=== PATIENT | male | born 1965 | race Hispanic/Latino ===

== ENCOUNTER 2018-03-03 09:41 | Inpatient (IN) | payer BC, SELFPAY ==
[2018-03-03 10:25] LABS: #Basophils 0.1 thou/uL (0.0-0.2); #Eosinphils 0.1 thou/uL (0.0-0.7); #Lymphocytes 1.6 thou/uL (1.20-3.40); #Neutrophils 7.4 thou/uL (1.40-6.50); %Basophils 0.5 % (0.0-1.0); %Eosinophils 0.6 % (0.0-10.0); %Lymphocytes 15.8 % (21.0-51.0); %Monocytes 9.9 % (0.0-10.0); %Neutrophils 73.1 % (42.0-75.0); Hemoglobin 14.9 g/dL (14.0-18.0); Mean Corpuscular HGB CONC 34.8 g/dL (32.0-36.0); Mean Corpuscular Hemoglobin 34.2 pg (27.0-31.0); Mean Corpuscular Volume 98.2 fl (80.0-94.0); Mean Platelet Volume 8.6 fL (7.4-10.4); Platelet Count 200 thou/uL (130-400); RBC Distribution Width 11.2 % (11.5-14.5); Red Blood Cell (RBC) Count 4.35 mill/uL (4.70-6.10); White Blood Cell (WBC) Count 10.2 thou/uL (4.8-10.8)
[2018-03-03 10:42] LABS: ALT (SGPT) 16 U/L (8-55); AST (SGOT) 16 U/L (5-34); Alkaline Phosphatase 71 U/L (40-150); Anion Gap 12 mmol/L (10-20); BUN (Urea Nitrogen) 10 mg/dL (8.4-25.7); Bilirubin, Total 0.4 mg/dL (0.2-1.2); Calc. Creatinine Clearance 0 mL/min (70-130); Calcium 10.8 mg/dL (7.8-10.44); Carbon Dioxide 26 mmol/L (22-29); Chloride 101 mmol/L (98-107); Estimated GFR-MDRD 59; Globulin 2.6 g/dL (2.4-3.5); Glucose 306 mg/dL (70-105); Potassium 4.1 mmol/L (3.5-5.1); Protein, Total 6.6 g/dL (6.0-8.3); Sodium 135 mmol/L (136-145)
[2018-03-03 10:44] LABS: CKMB 2.2 ng/mL (0-6.6)
[2018-03-03 10:54] LABS: Troponin I 0.879 ng/mL (< 0.028)
[2018-03-03] MEDS ORDERED: Nitroglycerin 2% Ointment 1 INCH/1 GM Packet ONE (11:17)
[2018-03-03] MEDS ORDERED: Enoxaparin Sodium 60 MG/0.6 ML SYRINGE ONE (11:17)
[2018-03-03 11:31] LABS: Prothrombin Time 13.2 SEC (12.0-14.7)
--- NOTE | 2018-03-03 12:02 | RAD ---
FRONTAL VIEW CHEST: Date: 03/03/18 INDICATION: Chest pain. Reference made to 03/06/12. FINDINGS: Mild elevation right hemidiaphragm persists. There is no lobar consolidation, effusion, or pneumothor ax. Cardiac silhouette is accentuated by portable technique. IMPRESSION: No focal consolidation. POS: [facility]
[2018-03-03] MEDS ORDERED: Insulin Regular 300 UNITS/3 ML VIAL ONE (12:38)
[2018-03-03] MEDS ORDERED: Ondansetron ODT 4 MG TAB SL PRN (14:54)
[2018-03-03] MEDS ORDERED: Ondansetron HCl/PF 4 MG/2 ML Vial IVP PRN (14:54)
[2018-03-03] MEDS ORDERED: Dextrose 5% in Water 1,000 ML IV PRN (14:59)
[2018-03-03] MEDS ORDERED: Guaifenesin DM 100-10/5 ML UDCUP PO PRN (14:59)
[2018-03-03] MEDS ORDERED: Dextrose 50% Abboject 50 ML SYRINGE SLOW IVP PRN (14:59)
[2018-03-03] MEDS ORDERED: HumaLOG 300 UNITS/3 ML VIAL SC PRN (14:59)
[2018-03-03] MEDS ORDERED: Acetaminophen 325 MG TAB PO PRN (14:59)
[2018-03-03 15:26] VITALS: BMI 24.0
[2018-03-03] MEDS ORDERED: Clopidogrel Bisulfate 300 MG TAB PO SCH (15:45)
[2018-03-03] MEDS ORDERED: Communication Order-Pharmacy FS SCH ×2 (15:45)
--- NOTE | 2018-03-03 16:12 | CON ---
DATE OF CONSULTATION: 03/03/2018 REASON FOR CONSULTATION: Non-ST elevation myocardial infarction. HISTORY OF PRESENT ILLNESS: Mr. José Manuel Jordan is a 53-year-old gentleman. He has been having chest p ain and pressure for about a week, thought it was indigestion. It got worse when he ate. This morni ng he had severe pain, it is about 4 in the morning and pain in the left arm went all the way across his chest. He wanted to go to work, but his insisted he finally came to the hospital. Then kaya t to doctor's office, but he was directed to the emergency room. The patient's said in the wait ing room, he started complaining of chest pain and he "lost all of his color." He was brought back t o the emergency room area. He received one dose of Lovenox. The patient says "I feel okay" now, but he has had increasing levels and troponin levels. PAST MEDICAL HISTORY: Diabetes, but he was not taking the diabetes medicines, but did resume some of them recently. ALLERGIES: None known. MEDICATIONS: Metformin, amlodipine. REVIEW OF SYSTEMS: Constitutional: No significant weight gain or loss. Vision: No changes. Heari ng: No changes. Pulmonary: No cough or wheezing. Gastrointestinal: No nausea, vomiting, diarrhea . Skin: No rashes. Neurologic: No unilateral weakness or numbness. Psychiatric: No unusual depr ession or anxiety. Hematologic: No unusual bruising. Genitourinary: No burning with urination. M usculoskeletal: No unusual joint pains. PHYSICAL EXAMINATION: GENERAL: A pleasant 53-year-old gentleman, wants to eat. VITAL SIGNS: His blood pressure 126/80, pulse 74 regular. HEENT: Sclerae nonicteric. Mouth, mucous membranes moist. NECK: Supple, no lymphadenopathy. LUNGS: Clear, no wheezing, rales or rhonchi. CARDIAC: Normal S1, normal S2. There is no murmur, rub or gallop. ABDOMEN: Soft, nontender, no hepatosplenomegaly. EXTREMITIES: Warm, dry, no clubbing or cyanosis. There is no edema. He has good femoral pulses and dorsalis pedis pulses. SKIN: Warm and dry. PERTINENT LABORATORY AND X-RAY FINDINGS: The first troponin was 0.879, follow up was 1.14. BNP 353. Potassium was 4.1, glucose 306. EKG normal sinus rhythm, T-wave inversions in the inferior leads, biphasic T waves in V5 and V6. ASSESSMENT: 1. Non-ST elevation myocardial infarction. 2. Diabetes. 3. Smoking. 4. Very significant alcohol intake. PLAN: We will proceed to cardiac catheterization. Discussed risks of stroke, heart attack, iodine a llergy, loss of blood supply to leg or kidney, stent thrombosis, stent restenosis. The patient and f keyona understand and wish to proceed. ADDENDUM: Mr. Jordan just received Lovenox less than 4 hours ago. He is currently pain free. As the patient is currently anticoagulated and asymptomatic, it will be safer to give the patient another d ose of Lovenox tonight and Proceed to cardiac catheterization tomorrow morning. Also, give a single loading dose of Plavix, but will not use maintenance dose in case the patient needs bypass surgery ne xt week.
[2018-03-03 16:45] LABS: Troponin I 1.528 ng/mL (< 0.028)
--- NOTE | 2018-03-03 18:06 | HP ---
REASON FOR ADMISSION: NSTEMI. HISTORY OF PRESENT ILLNESS: The patient gives history of having chest pain all across his chest radiating to both shoulders. This initially started on Tuesday. He tried taking Tums, thinking it was indigestion. He describes it as crushing pain, 10/10 in intensity, it lasted for nearly 40 minutes or so. He woke up this morning around 3:00 a.m. with the same pain. He thought it was indigestion again as he got relieved with Tums on Tuesday. He tried taking Rolaid. After this, he slept off around 3:45 a.m. He went to work and developed the pain again at work and was sent home. His took him to the [facility] where there was no doctors and was advised to go to the emergency room. The last episode of chest pain happened while his vital signs were taken in the ER and the patient was sitting. This episode of chest pain was associated with severe diaphoresis and patient became ashen. PAST MEDICAL/SURGICAL HISTORY: Diabetes mellitus type 2, hypertension, dyslipidemia, not on any medication, appendectomy, nose surgery. CURRENT MEDICATIONS: The patient takes metformin 1 gram daily, unknown hypertensive medication from last 3 weeks. Does not take any pills for dyslipidemia. ALLERGIES: No known drug allergies. PERSONAL HISTORY: Smokes one pack a day, drinks 24 ounces of beer, 3-4 on an average at least every day. Does not abuse drugs. FAMILY HISTORY: Mother lived up to 93 years, of old age. Father lived up to 79 years and as far as he knows he of natural causes. REVIEW OF SYSTEMS: The following complete review of systems was negative, unless otherwise mentioned in the HPI or below: Constitutional: Weight loss or gain, ability to conduct usual activities. Skin: Rash, itching. Eyes: Double vision, pain. ENT/Mouth: Nose bleeding, neck stiffness, pain, tenderness. Cardiovascular: Palpitations, dyspnea on exertion, orthopnea. Respiratory: Shortness of breath, wheezing, cough, hemoptysis, fever or night sweats. Gastrointestinal: Poor appetite, abdominal pain, heartburn, nausea, vomiting, constipation, or diarrhea. Genitourinary: Urgency, frequency, dysuria, nocturia. Musculoskeletal: Pain, swelling. Neurologic/Psychiatric: Anxiety, depression. Allergy/Immunologic: Skin rash, bleeding tendency. PHYSICAL EXAMINATION: GENERAL: The patient is a 53-year-old male who is currently not in any acute distress. VITAL SIGNS: Blood pressure 148/86, pulse 74 per minute, respiratory rate 16 per minute, temperature 97.8 degrees Fahrenheit, saturating 99% on room air. NECK: Supple, no elevated JVD. HEENT: Extraocular muscles intact. Pupils reacting to light. Oral cavity, mucous membranes are moist. No exudates or congestion. CARDIOVASCULAR: S1, S2 heard. Regular rhythm. RESPIRATORY: Air entry 1+ bilateral. Scattered rhonchi plus. No rales or wheezes. ABDOMEN: Soft, bowel sounds heard. No tenderness, rigidity or guarding. EXTREMITIES: No peripheral edema or calf tenderness. VASCULAR SYSTEM: Peripheral pulses 2+ bilateral. No ischemic ulcerations or gangrene. CENTRAL NERVOUS SYSTEM: No gross focal deficits seen. The patient is alert, awake, oriented well. PSYCHIATRIC: The patient's mood is euthymic. No hallucinations or delusions. LABORATORY AND X-RAY FINDINGS: EKG done shows normal sinus rhythm at 72 beats per minute. There are T inversions seen in lead II, III, AVF and V4, V5, V6. There is poor R-wave progression. White count of 10, H&H 14 and 42, MCV is 98, platelet count 200 with 73% neutrophils. PT, INR, PTT within normal limits. Electrolytes are stable. BUN 10, creatinine 1.26, serum glucose is 306. Albumin is 4. Troponin I 0.87, CK-MB 2.2, second set is 1.14. BNP is 353. Chest x-ray done shows no focal consolidation. CLINICAL IMPRESSION AND PLAN: The patient will be admitted to telemetry for non -ST elevation IA. He has had indeterminate troponins. He has received a full dose of Lovenox and aspirin in the ER. We will place him on nitro paste half- inch q.8 hourly, Lopressor 12.5 mg twice daily and Pepcid 20 mg twice daily. I have consulted Dr. Traore for Cardiology. He will be kept n.p.o. after midnight for possible catheterization in the morning. Echo with 2D Doppler for LV function and wall motion will be obtained as well. He will also be on ASE protocol in view of his heavy drinking habit. CODE STATUS: FULL. This was discussed with his of one year and patient. We will continue to closely monitor him on telemetry. YAKELIN
[2018-03-03] MEDS: Metoprolol Tartrate 25 MG TAB PO SCH (20:38)
[2018-03-03] MEDS: Famotidine 20 MG TAB PO SCH (20:38)
[2018-03-03] MEDS ORDERED: Famotidine 20 MG TAB PO SCH (21:00)
[2018-03-03] MEDS ORDERED: Metoprolol Tartrate 25 MG TAB PO SCH (21:00)
[2018-03-03] MEDS ORDERED: Enoxaparin Sodium 60 MG/0.6 ML SYRINGE SC SCH (21:00)
[2018-03-03] MEDS: Nitroglycerin 2% Ointment 1 INCH/1 GM Packet TOP SCH (22:38)
[2018-03-04 05:04] LABS: #Eosinphils 0.1 thou/uL (0.0-0.7); #Lymphocytes 2.8 thou/uL (1.20-3.40); #Neutrophils 5.3 thou/uL (1.40-6.50); %Basophils 0.3 % (0.0-1.0); %Eosinophils 1.6 % (0.0-10.0); %Lymphocytes 30.4 % (21.0-51.0); %Monocytes 10.8 % (0.0-10.0); %Neutrophils 56.8 % (42.0-75.0); Hemoglobin 14.7 g/dL (14.0-18.0); Mean Corpuscular HGB CONC 35.4 g/dL (32.0-36.0); Mean Corpuscular Hemoglobin 34.6 pg (27.0-31.0); Mean Corpuscular Volume 97.8 fl (80.0-94.0); Mean Platelet Volume 8.6 fL (7.4-10.4); Platelet Count 191 thou/uL (130-400); RBC Distribution Width 11.4 % (11.5-14.5); Red Blood Cell (RBC) Count 4.23 mill/uL (4.70-6.10); White Blood Cell (WBC) Count 9.3 thou/uL (4.8-10.8)
[2018-03-04 05:21] LABS: Anion Gap 12 mmol/L (10-20); BUN (Urea Nitrogen) 12 mg/dL (8.4-25.7); Calc. Creatinine Clearance 67 mL/min (70-130); Calcium 9.6 mg/dL (7.8-10.44); Carbon Dioxide 26 mmol/L (22-29); Cardiac Risk 4.1 (Less than 4.5); Chloride 106 mmol/L (98-107); Cholesterol 146 mg/dl (< 200 Desired); Estimated GFR-MDRD 68; Glucose 177 mg/dL (70-105); HDL Cholesterol 36 mg/dL (>60 Neg Risk); LDL Cholesterol, Calculated 78 mg/dL; Potassium 3.9 mmol/L (3.5-5.1); Sodium 140 mmol/L (136-145); Triglycerides 160 mg/dL (Less than 150)
[2018-03-04] MEDS: Sodium Chloride 0.9% 1,000 ML IV SCH ×4 (05:41→16:49)
[2018-03-04] MEDS: Metoprolol Tartrate 25 MG TAB PO SCH ×2 (05:42→20:25)
[2018-03-04] MEDS: Famotidine 20 MG TAB PO SCH ×2 (05:42→20:25)
[2018-03-04] MEDS: Lisinopril 10 MG TAB PO SCH (05:42)
[2018-03-04] MEDS: Aspirin 325 MG TAB PO SCH (05:42)
[2018-03-04] MEDS: Nitroglycerin 2% Ointment 1 INCH/1 GM Packet TOP SCH ×3 (05:48→22:16)
[2018-03-04] MEDS ORDERED: Iopamidol 370 76% 100 ML VIAL ONE (06:50)
[2018-03-04] MEDS ORDERED: Lidocaine 1% (PF) 30 ML VIAL ONE (07:02)
[2018-03-04] MEDS ORDERED: Diazepam 5 MG TAB PO SCH (08:00)
[2018-03-04] MEDS ORDERED: Midazolam HCl 2 mg/2 ml Vial ONE (08:08)
[2018-03-04] MEDS ORDERED: Fentanyl 100 MCG/2 ML VIAL ONE (08:08)
[2018-03-04] MEDS ORDERED: Enoxaparin Sodium 40 MG/0.4 ML SYRINGE SC SCH (09:00)
[2018-03-04] MEDS ORDERED: Acetaminophen/Codeine 30-300mg Tablet PO PRN ×2 (09:01)
[2018-03-04] MEDS ORDERED: traMADol HCl 50 MG TAB PO PRN (09:01)
[2018-03-04] MEDS ORDERED: Nitroglycerin 0.4 MG TAB (25 Tab Bottle) SL PRN (09:01)
[2018-03-04] MEDS ORDERED: Sodium Chloride 0.9% 200 ML IV PRN (09:15)
--- NOTE | 2018-03-04 13:39 | PDOC.PN ---
- Subjective Encounter Start Date: 03/04/18 Encounter Start Time: 12:00 Subjective: no chest pain or palp now -: had cath this am - Objective Resuscitation Status: Resuscitation Status FULL:Full Resuscitation MAR Reviewed: Yes Vital Signs & Weight: Vital Signs (12 hours) Temp Pulse Resp BP BP BP Pulse Ox 03/04/18 11:59 97.6 F 03/04/18 10:25 98 F 63 16 100 03/04/18 07:37 98 F 63 16 123/86 123/86 98 03/04/18 05:42 132/91 H 03/04/18 04:57 98.6 F 62 18 132/91 H 18 L 03/04/18 04:00 132/91 H Weight Weight 141 lb Most Recent Monitor Data Heart Rate from ECG 59 NIBP 131/78 NIBP BP-Mean 95 Respiration from ECG 15 SpO2 100 I&O: 03/03/18 03/04/18 03/05/18 06:59 06:59 06:59 Intake Total 1540 Output Total 675 325 Balance 865 -325 Result Diagrams: 03/04/18 04:15 03/04/18 04:15 Additional Labs: Accuchecks 03/04/18 03/04/18 03/03/18 12:19 05:52 20:47 POC Glucose 148 H 190 H 149 H 03/03/18 15:59 POC Glucose 197 H Phys Exam - Physical Examination HEENT: PERRLA, moist MMs Neck: no JVD, supple Respiratory: no wheezing, no rales Cardiovascular: RRR, no significant murmur Gastrointestinal: soft, non-tender, positive bowel sounds Musculoskeletal: no edema, pulses present Neurological: non-focal, moves all 4 limbs Psychiatric: normal affect, A&O x 3 Dx/Plan (1) NSTEMI (non-ST elevated myocardial infarction) Code(s): I21.4 - NON-ST ELEVATION (NSTEMI) MYOCARDIAL INFARCTION Status: Acute (2) CAD (coronary artery disease) Code(s): I25.10 - ATHSCL HEART DISEASE OF [place] CORONARY ARTERY W/O ANG PCTRS Status: Acute Qualifiers: Coronary Disease-Associated Artery/Lesion type: [place] artery [place] vs. transplanted heart: [place] heart (3) Dyslipidemia Code(s): E78.5 - HYPERLIPIDEMIA, UNSPECIFIED Status: Chronic (4) DM type 2 (diabetes mellitus, type 2) Status: Chronic Qualifiers: Diabetes mellitus care home insulin use: without care home use Diabetes mellitus complication status: with unspecified complications Qualified Code(s) : E11.8 - Type 2 diabetes mellitus with unspecified complications (5) Alcohol abuse Code(s): F10.10 - ALCOHOL ABUSE, UNCOMPLICATED Status: Chronic (6) Tobacco abuse Code(s): Z72.0 - TOBACCO USE Status: Chronic (7) Hypertension Code(s): I10 - ESSENTIAL (PRIMARY) HYPERTENSION Status: Chronic Qualifiers: Hypertension type: essential hypertension Qualified Code(s): I10 - Essential (primary) hypertension - Plan has multiple vessel cad for cabg -: is on asp, lipitor, lopressor, lisinopril -: full dose lovenox -: ef was around 30% with inf wall akinesis -: plavix held for now, humalog coverage ac&hs * . Review of Systems - Medications/Allergies Allergies/Adverse Reactions: Allergies Allergy/AdvReac Type Severity Reaction Status Date / Time No Known Drug Allergies Allergy Verified 03/03/18 15:22 Medications: Current Medications Acetaminophen (Tylenol) 650 mg PO Q4H PRN PRN Reason: Headache/Fever or Pain Last Admin: 03/03/18 18:24 Dose: 650 mg Acetaminophen/Codeine Phosphate (Tylenol #3) 1 tab PO Q4H PRN PRN Reason: Mild Pain (1-3) Acetaminophen/Codeine Phosphate (Tylenol #3) 2 tab PO Q4H PRN PRN Reason: Moderate Pain (4-6) Aspirin (Aspirin) 325 mg PO DAILY [facility] Last Admin: 03/04/18 05:42 Dose: 325 mg Atorvastatin Calcium (Lipitor) 10 mg PO [facility] Dextrose/Water (Dextrose 50%) 25 gm SLOW IVP PRN PRN PRN Reason: Hypoglycemia Diazepam (Valium) 5 mg PO WILLCALL [facility] Stop: 03/04/18 20:00 Last Admin: 03/04/18 07:47 Dose: 5 mg Enoxaparin Sodium (Lovenox) 60 mg SC 0900,2100 [facility] Famotidine (Pepcid) 20 mg PO BID [facility] Last Admin: 03/04/18 05:42 Dose: 20 mg Glucagon (Glucagon) 1 mg IM PRN PRN PRN Reason: Hypoglycemia Guaifenesin/Dextromethorphan (Robitussin Dm) 15 ml PO Q4H PRN PRN Reason: Cough Dextrose/Water (D5w) 1,000 mls @ 0 mls/hr IV .Q0M PRN; As Directed PRN Reason: Hypoglycemia Sodium Chloride (Normal Saline 0.9%) 1,000 mls @ 100 mls/hr IV .Q10H [facility] Last Admin: 03/04/18 05:41 Dose: 1,000 mls Sodium Chloride (Normal Saline 0.9%) 1,000 mls @ 80 mls/hr IV .[id number] [facility] Last Admin: 03/04/18 11:05 Dose: 1,000 mls Sodium Chloride (Normal Saline 0.9%) 200 mls @ 0 mls/hr IV ONE PRN; As Directed PRN Reason: Bolus PRN SBP < 90 mm Hg Stop: 03/07/18 09:16 Insulin Human Lispro (Humalog) 0 units SC .MODERATE SLIDING SC PRN PRN Reason: Moderate Correction[place] Scale Insulin Human Lispro (Humalog) 0 units SC .BEDTIME SLIDING SC PRN PRN Reason: Bedtime Correction[place] Scale Lisinopril (Zestril) 10 mg PO DAILY [facility] Last Admin: 03/04/18 05:42 Dose: 10 mg Metoprolol Tartrate (Lopressor) 12.5 mg PO BID [facility] Last Admin: 03/04/18 05:42 Dose: 12.5 mg Miscellaneous Information (Communication Order-Pharmacy) 0 each FS ONE [facility] Stop: 03/04/18 15:46 Miscellaneous Information (Communication Order-Pharmacy) 0 each FS ONE [facility] Stop: 03/04/18 15:46 Nitroglycerin (Nitro-Bid 2% Ointment) 0.5 inch TOP Q8HR [facility] Last Admin: 03/04/18 05:48 Dose: Not Given Nitroglycerin (Nitrostat) 0.4 mg SL Q5MIN PRN PRN Reason: Chest Pain Tramadol HCl (Ultram) 50 mg PO Q6H PRN PRN Reason: Moderate Pain (4-6)
[2018-03-04] MEDS ORDERED: Communication Order-Pharmacy FS SCH (15:49)
[2018-03-04 16:44] LABS: #Basophils 0.1 thou/uL (0.0-0.2); #Eosinphils 0.2 thou/uL (0.0-0.7); #Lymphocytes 2.4 thou/uL (1.20-3.40); #Monocytes 0.9 thou/uL (0.11-0.59); #Neutrophils 5.4 thou/uL (1.40-6.50); %Basophils 0.8 % (0.0-1.0); %Eosinophils 1.7 % (0.0-10.0); %Lymphocytes 26.6 % (21.0-51.0); %Monocytes 10.1 % (0.0-10.0); %Neutrophils 60.8 % (42.0-75.0); Hemoglobin 14.4 g/dL (14.0-18.0); Mean Corpuscular HGB CONC 35.6 g/dL (32.0-36.0); Mean Corpuscular Hemoglobin 35.2 pg (27.0-31.0); Mean Corpuscular Volume 98.7 fl (80.0-94.0); Mean Platelet Volume 8.4 fL (7.4-10.4); Platelet Count 182 thou/uL (130-400); RBC Distribution Width 11.3 % (11.5-14.5)
[2018-03-04 16:50] LABS: Hemoglobin A1c 8.9 % (4.0-6.0)
[2018-03-04 17:03] LABS: Anion Gap 8 mmol/L (10-20); BUN (Urea Nitrogen) 13 mg/dL (8.4-25.7); Calc. Creatinine Clearance 65 mL/min (70-130); Calcium 9.4 mg/dL (7.8-10.44); Carbon Dioxide 27 mmol/L (22-29); Chloride 106 mmol/L (98-107); Estimated GFR-MDRD 65; Glucose 158 mg/dL (70-105); Potassium 3.8 mmol/L (3.5-5.1); Sodium 137 mmol/L (136-145)
[2018-03-04] MEDS ORDERED: Enoxaparin Sodium 60 MG/0.6 ML SYRINGE SC SCH ×2 (18:00→21:00)
[2018-03-04] MEDS: HumaLOG 300 UNITS/3 ML VIAL SC PRN (18:36)
--- NOTE | 2018-03-04 20:52 | CON ---
DATE OF CONSULTATION: 03/04/2018 REQUESTING PHYSICIAN: Dr. Traore. CHIEF COMPLAINT: Burning epigastric chest pain progressing to crushing chest pain. HISTORY OF PRESENT ILLNESS: The patient is a 53-year-old diabetic man followed at [facility] who sounds like he is not particularly compliant with medical management. Over the last week or so , the patient has been having frequent episodes of indigestion. He says that in the past, he has got ten relief of his indigestions by taking antacid, but over the last week or two, it really has not he lped much and he has been waking up in the middle of the night with indigestion. This so-called chang gestion has been associated with discomfort in his shoulders and arms and occasionally in his neck. When he finally it is significant other's insistence presented to the emergency room, he apparently h ad another episode in the emergency room that was associated with diaphoresis and he developed an suly in color. The patient denies any antecedent shortness of breath, edema, orthopnea or PND. PAST MEDICAL HISTORY: Significant for diabetes. MEDICATIONS: He is supposed to be on Norvasc 5 mg a day and metformin 1000 mg q.a.m., although it is not clear that he actually takes this. He was given a loading dose of Plavix 300 mg yesterday after noon and he is currently on an adult aspirin a day, Lipitor 10 mg at bedtime, Lovenox 60 mg subQ q.12 hours, sliding scale insulin, Pepcid 20 mg b.i.d., Lopressor 12.5 mg b.i.d., lisinopril 10 mg a day and nitro paste 1/2 inch q.8 hours. ALLERGIES: Patient denies any medical history. SOCIAL HISTORY: He smokes and is a daily drinker. FAMILY HISTORY: Negative for any known premature heart disease or other vascular disease, but multip le family members have diabetes and hypertension. REVIEW OF SYSTEMS: Patient denies any eye, speech, facial or extremity symptoms suggestive of TIAs. He does say that he has frequent leg cramps when he walks. Otherwise, review of systems is as per H PI. PHYSICAL EXAMINATION: GENERAL: He is in no distress. He is 5 feet 4 inches, weight 141 pounds. Heart rate has been in si nus rhythm in the mid 20s to low 70s. Blood pressure has been roughly 120-140/70-85. NECK: He has obvious xanthelasma. LUNGS: His chest is clear to auscultation. He has no carotid bruits. CARDIOVASCULAR: He has a regular rate and rhythm without obvious murmur or gallop. ABDOMEN: Soft and nontender. EXTREMITIES: He has easily palpable radial, femoral, popliteal, and dorsalis pedis pulses. I was no t able to readily appreciate posterior tibials. He has no clubbing, cyanosis or edema. No atrophic skin changes. He has no obvious varicosities. LABORATORY AND IMAGING DATA: His chest x-ray shows perhaps some mild to moderate edema with a reason ably normal cardiac silhouette and aortic knob. Hemoglobin is 14.7, hematocrit 41.4, white count 9.3 , platelets 191,000. PT was 13.2, INR 1.0, PTT 28.0. Normal electrolytes. Glucose was 306, BUN 10, creatinine 1.26. Normal LFTs. Protein 6.6, albumin 4.0. His initial troponin was 0.879 with a fol lowup troponin of 1.140. His BNP was 353.8. Fasting lipids were triglyceride of 160, total choleste rol 146, LDL 78, HDL 36. His EKG shows an R-wave in 2, but none in 3 or AVF with inverted T waves in leads II, III, aVF, V5 and V6. He has an upright T-wave in V1 and biphasic T-wave in V4. Cardiac c atheterization shows a right dominant system with a very large posterolateral and posterior descendin g systems. He has mild mid right coronary lesion, but a subtotal lesion in the distal right coronary just proximal to the crux. The posterior descending and posterolateral branches appear to communica te with each other freely. His left main is normal. He has a reasonably normal sized obtuse margina l was a modest lesion in it. He has about a 70-80% lesion in a small diagonal. His LAD is a diminut edgard vessel that does not seem to even go out to the apex, but has no obvious significant disease in i t. LV pressure was 105/6 with an EDP of 10. Aortic pressure was 108/65 with a mean of 83. LVEF was 30% by Dr. Traore's estimation, I thought it was about 20%. He has a large area of inferoapical sanket nesis. IMPRESSION AND RECOMMENDATIONS: Based on his EKG and ventriculogram, I would not be surprised if muc h of his inferior wall and perhaps posterolateral wall or scar and that his symptoms are coming more from his septum, viable portions of his posterolateral system. His LAD is rather diminutive and may not provide much blood flow to the septum. His EDP would suggest that this is relatively chronic iss ue and he is reasonably well compensated in spite of the low ejection fraction and will plan on revas cularization to the right obtuse marginal and if bypassable to the diagonal.
[2018-03-04] MEDS ORDERED: Atorvastatin Calcium 10 MG TAB PO SCH (21:00)
--- NOTE | 2018-03-05 01:15 | CON ---
DATE OF CONSULTATION: 03/04/2018 HISTORY OF PRESENT ILLNESS: Mr. Jordan is a gentleman who presented with chest discomfort. He has had chest discomfort prior to this admission and pushed it off the indigestion. He has undergone cardiac catheterization and found to have significant coronary artery disease. He has been admitted to the ICU. PAST MEDICAL HISTORY: Remarkable for diabetes. ALLERGIES: None. MEDICATIONS: None. According to records, he has been on metformin and amlodipine, but did run out and not refill the prescriptions. REVIEW OF SYSTEMS: Ten points otherwise negative. He denies having any pain now. He wants to know if he can go home with medicine. PHYSICAL EXAMINATION. GENERAL: Patient has chest pain VITAL SIGNS: Afebrile. Blood pressure 127/92, heart rate 66, respiratory rate is 15. HEAD AND NECK: Unremarkable. LUNGS: Clear. HEART: Regular rhythm. S1 and S2 are normal. ABDOMEN: Soft and nontender. EXTREMITIES: No clubbing, cyanosis, or edema. NEUROLOGIC: Grossly nonfocal. LABORATORY DATA: White count 9.0, hemoglobin 14.4, platelets 182,000. Sodium 137, potassium 3.8, chloride 106, bicarb 27, BUN 13, creatinine 1.1. IMPRESSION: Coronary artery disease. I have asked him to defer all of his questions to the behavior interventionist and cardiothoracic surgeon. His ejection fraction by echo was down at 35-40%. He has inferior hypokinesis. He has mild- to-moderate mitral regurgitation. From a pulmonary standpoint and ICU standpoint, he is stable at this time. He is resistant to idea of surgery, but says he will do what he has to do. This is a 70-minute consult, greater than 50% of the time was spent coordinating care on the unit. YAKELIN
[2018-03-05] MEDS: Sodium Chloride 0.9% 1,000 ML IV SCH (03:41)
[2018-03-05] MEDS: Nitroglycerin 2% Ointment 1 INCH/1 GM Packet TOP SCH ×3 (05:19→20:48)
[2018-03-05] MEDS: HumaLOG 300 UNITS/3 ML VIAL SC PRN ×3 (05:57→17:18)
[2018-03-05] MEDS: Famotidine 20 MG TAB PO SCH ×2 (08:55→20:47)
[2018-03-05] MEDS: Metoprolol Tartrate 25 MG TAB PO SCH ×2 (08:55→20:47)
[2018-03-05] MEDS: Aspirin 325 MG TAB PO SCH (08:55)
[2018-03-05] MEDS: Enoxaparin Sodium 60 MG/0.6 ML SYRINGE SC SCH ×2 (08:56→20:48)
[2018-03-05] MEDS: Lisinopril 10 MG TAB PO SCH (08:56)
--- NOTE | 2018-03-05 10:12 | PRG ---
DATE OF SERVICE: 03/05/2018. SUBJECTIVE: Mr. Jordan is doing fine. He is not having any chest pain or pressure. PHYSICAL EXAMINATION: VITAL SIGNS: His blood pressure is 145/87, pulse is 68, regular. LUNGS: Clear. CARDIAC: Normal S1, S2. ABDOMEN: Soft, nontender. The right groin is fine. ASSESSMENT: 1. Status post non-ST elevation myocardial infarction with severe 3-vessel disease. 2. Diabetes. 3. History of smoking. PLAN: Coronary artery bypass grafting tomorrow. We will give him one more dose of Lovenox and then stop.
--- NOTE | 2018-03-05 13:55 | PRG ---
DATE OF SERVICE: 03/05/2018 SUBJECTIVE: José Manuel Jordan denies having chest pain, says he is willing to undergo surgery. He wants to eat a cheeseburger before he has surgery because he says he changes diet after surgery. I have explained to him that he is uncontrolled diabetes and he is failure to take medications on a r egular basis, this what strongly contributed to this situation. OBJECTIVE: VITAL SIGNS: He is afebrile, heart rate 74, blood pressure 147/90, respiratory rate is 19. LUNGS: Clear. HEART: Regular rhythm. S1 and S2 are normal. ABDOMEN: Soft and nontender. EXTREMITIES: Without edema. NEUROLOGIC: Nonfocal. LABORATORY DATA: There is no new lab today except blood sugars, which were all less than 195 for the most part in the 170 range. IMPRESSION: 1. Coronary artery disease, tentatively for coronary bypass grafting. 2. History of medical noncompliance. PLAN: Continue current care. Awaiting surgery. He is stable to move out of the Critical Care Unit. He has had no chest pain.
--- NOTE | 2018-03-05 15:46 | PDOC.PN ---
- Subjective Encounter Start Date: 03/05/18 Encounter Start Time: 07:20 Subjective: no chest pain or sob or palp -: and brother at bedside - Objective Resuscitation Status: Resuscitation Status FULL:Full Resuscitation MAR Reviewed: Yes Vital Signs & Weight: Vital Signs (12 hours) Temp Pulse Resp BP Pulse Ox 03/05/18 11:59 97.6 F 03/05/18 08:56 145/84 H 03/05/18 07:39 97.6 F 75 14 99 03/05/18 07:00 97.6 F Weight Weight 136 lb 0.403 oz Most Recent Monitor Data Heart Rate from ECG 67 NIBP 142/94 NIBP BP-Mean 102 Respiration from ECG 18 SpO2 98 I&O: 03/04/18 03/05/18 03/06/18 06:59 06:59 06:59 Intake Total 1540 2250 1886 Output Total 675 3065 851 Balance 865 -815 1035 Result Diagrams: 03/04/18 16:35 03/04/18 16:35 Additional Labs: Accuchecks 03/05/18 03/05/18 03/04/18 11:40 05:57 20:19 POC Glucose 195 H 179 H 172 H 03/04/18 17:55 POC Glucose 175 H Phys Exam - Physical Examination HEENT: PERRLA, moist MMs Neck: no JVD, supple Respiratory: no wheezing, no rales Cardiovascular: RRR, no significant murmur Gastrointestinal: soft, non-tender, positive bowel sounds Musculoskeletal: no edema, pulses present Neurological: non-focal, moves all 4 limbs Psychiatric: normal affect, A&O x 3 Dx/Plan (1) NSTEMI (non-ST elevated myocardial infarction) Code(s): I21.4 - NON-ST ELEVATION (NSTEMI) MYOCARDIAL INFARCTION Status: Acute (2) CAD (coronary artery disease) Code(s): I25.10 - ATHSCL HEART DISEASE OF [place] CORONARY ARTERY W/O ANG PCTRS Status: Acute Qualifiers: Coronary Disease-Associated Artery/Lesion type: [place] artery [place] vs. transplanted heart: [place] heart (3) Dyslipidemia Code(s): E78.5 - HYPERLIPIDEMIA, UNSPECIFIED Status: Chronic (4) DM type 2 (diabetes mellitus, type 2) Status: Chronic Qualifiers: Diabetes mellitus fci insulin use: without long wall shear operator use Diabetes mellitus complication status: with unspecified complications Qualified Code(s) : E11.8 - Type 2 diabetes mellitus with unspecified complications (5) Alcohol abuse Code(s): F10.10 - ALCOHOL ABUSE, UNCOMPLICATED Status: Chronic (6) Tobacco abuse Code(s): Z72.0 - TOBACCO USE Status: Chronic (7) Hypertension Code(s): I10 - ESSENTIAL (PRIMARY) HYPERTENSION Status: Chronic Qualifiers: Hypertension type: essential hypertension Qualified Code(s): I10 - Essential (primary) hypertension - Plan is on asp, lipitor, lovenox 60 mg q12h, lopressor 12.5 bid, lisinopril 10 -: echo confirmed ef of 35% with inf wall hypokinesis -: HbA1c of 8.9, is on coverage now, will optimize meds post cabg -: for cabg in am, i.spirometry qhrly, cabg video to be shown to pt -: hemostable, d/w pt, and brother at bedside * . Review of Systems - Medications/Allergies Allergies/Adverse Reactions: Allergies Allergy/AdvReac Type Severity Reaction Status Date / Time No Known Drug Allergies Allergy Verified 03/03/18 15:22 Medications: Current Medications Acetaminophen (Tylenol) 650 mg PO Q4H PRN PRN Reason: Headache/Fever or Pain Stop: 03/06/18 08:30 Last Admin: 03/03/18 18:24 Dose: 650 mg Acetaminophen/Codeine Phosphate (Tylenol #3) 1 tab PO Q4H PRN PRN Reason: Mild Pain (1-3) Stop: 03/06/18 08:30 Acetaminophen/Codeine Phosphate (Tylenol #3) 2 tab PO Q4H PRN PRN Reason: Moderate Pain (4-6) Stop: 03/06/18 08:30 Aspirin (Aspirin) 325 mg PO DAILY [facility] Stop: 03/06/18 08:30 Last Admin: 03/05/18 08:55 Dose: 325 mg Atorvastatin Calcium (Lipitor) 40 mg PO HS [facility] Stop: 03/06/18 08:30 Dextrose/Water (Dextrose 50%) 25 gm SLOW IVP PRN PRN PRN Reason: Hypoglycemia Stop: 03/06/18 08:30 Enoxaparin Sodium (Lovenox) 60 mg SC 0900,2100 [facility] Stop: 03/06/18 06:00 Last Admin: 03/05/18 08:56 Dose: 60 mg Famotidine (Pepcid) 20 mg PO BID [facility] Stop: 03/06/18 08:30 Last Admin: 03/05/18 08:55 Dose: 20 mg Glucagon (Glucagon) 1 mg IM PRN PRN PRN Reason: Hypoglycemia Stop: 03/06/18 08:30 Guaifenesin/Dextromethorphan (Robitussin Dm) 15 ml PO Q4H PRN PRN Reason: Cough Stop: 03/06/18 08:30 Dextrose/Water (D5w) 1,000 mls @ 0 mls/hr IV .Q0M PRN; As Directed PRN Reason: Hypoglycemia Stop: 03/06/18 08:30 Sodium Chloride (Normal Saline 0.9%) 200 mls @ 0 mls/hr IV ONE PRN; As Directed PRN Reason: Bolus PRN SBP < 90 mm Hg Stop: 03/06/18 08:30 Insulin Human Lispro (Humalog) 0 units SC .MODERATE SLIDING SC PRN PRN Reason: Moderate Correctional Scale Stop: 03/06/18 08:30 Last Admin: 03/05/18 11:53 Dose: 2 unit Insulin Human Lispro (Humalog) 0 units SC .BEDTIME SLIDING SC PRN PRN Reason: Bedtime Correctional Scale Stop: 03/06/18 08:30 Lisinopril (Zestril) 10 mg PO DAILY [facility] Stop: 03/06/18 11:00 Last Admin: 03/05/18 08:56 Dose: 10 mg Metoprolol Tartrate (Lopressor) 12.5 mg PO BID [facility] Stop: 03/06/18 11:00 Last Admin: 03/05/18 08:55 Dose: 12.5 mg Miscellaneous Information (Communication Order-Pharmacy) 1 each FS ONE [facility] Stop: 03/06/18 15:50 Nitroglycerin (Nitro-Bid 2% Ointment) 0.5 inch TOP Q8HR [facility] Stop: 03/06/18 08:30 Last Admin: 03/05/18 05:19 Dose: 0.5 inch Nitroglycerin (Nitrostat) 0.4 mg SL Q5MIN PRN PRN Reason: Chest Pain Stop: 03/06/18 08:30 Tramadol HCl (Ultram) 50 mg PO Q6H PRN PRN Reason: Moderate Pain (4-6) Stop: 03/06/18 08:30
[2018-03-05] MEDS ORDERED: Atorvastatin Calcium 40 MG TAB PO SCH (21:00)
[2018-03-06] MEDS: Nitroglycerin 2% Ointment 1 INCH/1 GM Packet TOP SCH (05:31)
[2018-03-06] MEDS: Lisinopril 10 MG TAB PO SCH (05:31)
[2018-03-06] MEDS: Metoprolol Tartrate 25 MG TAB PO SCH (07:43)
[2018-03-06] MEDS ORDERED: Mannitol 12.5 GM/50 ML ONE (11:51)
[2018-03-06] MEDS ORDERED: Papaverine 60 MG/2 ML VIAL ONE (11:51)
[2018-03-06] MEDS ORDERED: PHENYLEPHRINE-NS 100 MCG/ML 10 ML SYRINGE ONE (11:51)
[2018-03-06] MEDS ORDERED: Nitroglycerin 50 MG/250 ML BOT ONE (11:51)
[2018-03-06] MEDS ORDERED: Cardioplegic Soln 1,000 ML BAG ONE (11:51)
[2018-03-06] MEDS ORDERED: Protamine Sulfate 250 MG/25 ML VIAL ONE (11:51)
[2018-03-06] MEDS ORDERED: Aminocaproic Acid 5 GM/20 ML VIAL ONE (11:51)
[2018-03-06] MEDS ORDERED: Heparin 30,000 units/30 ml VIAL ONE (11:51)
[2018-03-06] MEDS ORDERED: Sodium Bicarb 50 MEQ/50 ML Abboject 8.4% SYRINGE ONE (11:51)
[2018-03-06] MEDS ORDERED: Heparin 5,000 UNITS/ML VIAL ONE (11:51)
[2018-03-06] MEDS ORDERED: Norepinephrine 4 MG/4 ML VIAL ONE (11:51)
[2018-03-06] MEDS ORDERED: Heparin 10,000 UNITS/1 ML VIAL 30,000 UNITS in Sodium Chloride 0.9% 1,000 ML FS SCH (12:15)
[2018-03-06] MEDS ORDERED: Albumin 5% 500 ML ONE ×2 (13:07→14:08)
[2018-03-06] MEDS ORDERED: Fentanyl 250 MCG/5 ML VIAL ONE (13:55)
[2018-03-06] MEDS ORDERED: Midazolam HCl 5 mg/5 ml Vial ONE (13:56)
[2018-03-06] MEDS ORDERED: Dexmedetomidine 200 MCG/2 ML VIAL ONE (13:57)
[2018-03-06] MEDS ORDERED: Rocuronium Bromide 50 MG/5 ML VIAL ONE (14:00)
[2018-03-06] MEDS ORDERED: Phenylephrine HCL 10 MG/ML VIAL ONE (14:00)
[2018-03-06] MEDS ORDERED: HYDROcodone/Acetaminophen 5/325 mg Tablet PO PRN (14:06)
[2018-03-06] MEDS ORDERED: Norepinephrine 8 MG/0.9% NS 250 ML IVPB PRN (14:06)
[2018-03-06] MEDS ORDERED: Hetastarch 6% 500 ML 500 ML IVPB PRN (14:06)
[2018-03-06] MEDS ORDERED: Nitroglycerin 50 MG/250 ML BOT 250 ML IVPB PRN (14:06)
[2018-03-06] MEDS ORDERED: Acetaminophen 325 MG TAB PO PRN (14:06)
[2018-03-06] MEDS ORDERED: Bisacodyl 5 MG TAB PO PRN (14:06)
[2018-03-06] MEDS ORDERED: Post-Op Insulin Drip Protocol IVPB ONE (14:06)
[2018-03-06] MEDS ORDERED: Mag-Al 1200 mg/1200 mg/30 ML UDCUP PO PRN (14:06)
[2018-03-06] MEDS ORDERED: Bisacodyl 10 MG SUPP PR PRN (14:06)
[2018-03-06] MEDS ORDERED: hydrALAZINE 20 MG/ML VIAL SLOW IVP PRN (14:06)
[2018-03-06] MEDS ORDERED: Fentanyl 100 MCG/2 ML VIAL SLOW IVP PRN (14:06)
[2018-03-06] MEDS ORDERED: Promethazine HCl 25 MG/ML VIAL IM PRN (14:06)
[2018-03-06] MEDS ORDERED: Guaifenesin DM 100-10/5 ML UDCUP PO PRN (14:06)
[2018-03-06] MEDS ORDERED: Dextrose 50% Abboject 50 ML SYRINGE SLOW IVP PRN (14:17)
[2018-03-06] MEDS ORDERED: Dextrose 5% in Water 1,000 ML IV PRN (14:17)
[2018-03-06] MEDS ORDERED: CEFAZOLIN/Water 2 GM/20 ML SYRINGE ONE (14:22)
--- NOTE | 2018-03-06 17:10 | PDOC.PN ---
- Subjective Encounter Start Date: 03/06/18 Encounter Start Time: 07:50 Subjective: no chest pain or sob -: is npo for cabg this afternoon -: at bedside - Objective Resuscitation Status: Resuscitation Status FULL:Full Resuscitation MAR Reviewed: Yes Vital Signs & Weight: Vital Signs (12 hours) Temp Pulse Resp BP BP Pulse Ox 03/06/18 12:19 98.6 F 64 17 151/89 H 96 03/06/18 08:00 121/80 03/06/18 07:36 98.4 F 56 L 16 121/80 97 Weight Weight 130 lb 3.2 oz Most Recent Monitor Data Heart Rate from ECG 75 NIBP 151/95 NIBP BP-Mean 111 Respiration from ECG 16 SpO2 100 I&O: 03/05/18 03/06/18 03/07/18 06:59 06:59 06:59 Intake Total 2250 2286 Output Total 3065 1576 Balance -815 710 Result Diagrams: 03/04/18 16:35 03/04/18 16:35 Additional Labs: Accuchecks 03/06/18 03/06/18 03/06/18 17:03 16:16 15:03 POC Glucose 132 H 124 H 123 H 03/06/18 03/06/18 03/05/18 11:16 05:44 22:25 POC Glucose 168 H 188 H 225 H Phys Exam - Physical Examination HEENT: PERRLA, moist MMs Neck: no JVD, supple Respiratory: no wheezing, no rales Cardiovascular: RRR, no significant murmur Gastrointestinal: soft, non-tender, positive bowel sounds Musculoskeletal: no edema, pulses present Neurological: non-focal, moves all 4 limbs Psychiatric: normal affect, A&O x 3 Dx/Plan (1) NSTEMI (non-ST elevated myocardial infarction) Code(s): I21.4 - NON-ST ELEVATION (NSTEMI) MYOCARDIAL INFARCTION Status: Acute (2) CAD (coronary artery disease) Code(s): I25.10 - ATHSCL HEART DISEASE OF [place] CORONARY ARTERY W/O ANG PCTRS Status: Acute Qualifiers: Coronary Disease-Associated Artery/Lesion type: [place] artery [place] vs. transplanted heart: [place] heart (3) Dyslipidemia Code(s): E78.5 - HYPERLIPIDEMIA, UNSPECIFIED Status: Chronic (4) DM type 2 (diabetes mellitus, type 2) Status: Chronic Qualifiers: Diabetes mellitus fdc insulin use: without fdc use Diabetes mellitus complication status: with unspecified complications Qualified Code(s) : E11.8 - Type 2 diabetes mellitus with unspecified complications (5) Alcohol abuse Code(s): F10.10 - ALCOHOL ABUSE, UNCOMPLICATED Status: Chronic (6) Tobacco abuse Code(s): Z72.0 - TOBACCO USE Status: Chronic (7) Hypertension Code(s): I10 - ESSENTIAL (PRIMARY) HYPERTENSION Status: Chronic Qualifiers: Hypertension type: essential hypertension Qualified Code(s): I10 - Essential (primary) hypertension - Plan for cabg today this afternoon -: no signs of alc withdrawal, watch for it post op -: on asp, lipitor, lopressor and lisinopril -: off lovenox -: will f/u * . Review of Systems - Medications/Allergies Allergies/Adverse Reactions: Allergies Allergy/AdvReac Type Severity Reaction Status Date / Time No Known Drug Allergies Allergy Verified 03/03/18 15:22 Medications: Current Medications Acetaminophen (Tylenol) 650 mg PO Q6H PRN PRN Reason: Headache/Fever Or Mild Pain Hydrocodone Bitart/Acetaminophen ([place] 5/325) 1 tab PO Q4H PRN PRN Reason: Moderate Pain (4-6) Hydrocodone Bitart/Acetaminophen ([place] 5/325) 2 tab PO Q4H PRN PRN Reason: Severe Pain (7-10) Al Hydroxide/Mg Hydroxide (Maalox) 30 ml PO Q4H PRN PRN Reason: Indigestion Albumin Human (Albumin 5%) 12.5 gm IVPB Q6H PRN PRN Reason: To Maintain SBP> 90 mmHG Stop: 03/07/18 14:07 Albumin Human (Albumin 5%) 25 gm IVPB Q6H PRN PRN Reason: To Maintain SBP > 90 mmHG Stop: 03/07/18 14:07 Albuterol/Ipratropium (Duoneb) 3 ml NEB [id number] PRN PRN Reason: SHORTNESS OF BREATH Aspirin (Aspirin) 325 mg PO DAILY [facility] Atorvastatin Calcium (Lipitor) 40 mg PO HS [facility] Bisacodyl (Dulcolax) 10 mg PO Q12H PRN PRN Reason: Constipation Bisacodyl (Dulcolax) 10 mg [place] Q12H PRN PRN Reason: Constipation Dextrose/Water (Dextrose 50%) 25 gm SLOW IVP PRN PRN PRN Reason: PER HYPOGLYCEMIC PROTOCOL Famotidine (Pepcid) 20 mg SLOW IVP Q12HR [facility] Fentanyl (Sublimaze) 25 mcg SLOW IVP Q2H PRN PRN Reason: Moderate Pain (4-6) Stop: 03/08/18 14:06 Fentanyl (Sublimaze) 50 mcg SLOW IVP Q2H PRN PRN Reason: Severe Pain (7-10) Stop: 03/08/18 14:06 Glucagon (Glucagon) 1 mg SC PRN PRN PRN Reason: PER HYPOGLYCEMIC PROTOCOL Guaifenesin/Dextromethorphan (Robitussin Dm) 15 ml PO Q4H PRN PRN Reason: Cough Hydralazine HCl (Apresoline) 10 mg SLOW IVP Q6H PRN PRN Reason: To Maintain SBP< 140mmHG Heparin Sodium (Porcine) 30, (000 units/ Sodium Chloride) 1,003 mls @ 0 mls/hr FS [place] EAN PRN Reason: As Directed Stop: 03/06/18 23:59 Hetastarch/Sodium Chloride (Hespan) 500 mls @ 0 mls/hr IVPB PRN PRN; As Directed PRN Reason: To Maintain SBP > 90mmHg Stop: 03/07/18 14:06 Norepinephrine Bitartrate (Levophed) 250 mls @ 0 mls/hr IVPB PRN PRN; Protocol ; Titrate PRN Reason: To maintain SBP > 90 mmHG Nicardipine HCl 25 mg/ Sodium (Chloride) 260 mls @ 0 mls/hr IVPB INF PRN; Protocol; Titrate PRN Reason: To Maintain SBP< 140mmHG Nitroglycerin/Dextrose (Nitroglycerin 50 Mg/250 Ml Bot) 250 mls @ 0 mls/hr IVPB PRN PRN; Protocol; Titrate PRN Reason: To Maintain SBP< 140mmHG Sodium Chloride (Normal Saline 0.9%) 1,000 mls @ 75 mls/hr IV .[id number] [facility] Insulin Human Regular 100 (units/ Sodium Chloride) 101 mls @ 0 mls/hr IVPB INF EAN; As Directed PRN Reason: Protocol Dextrose/Water (D5w) 1,000 mls @ 0 mls/hr IV INF PRN; As Directed PRN Reason: PRN HYPOGLYCEMIC PROTOCOL Insulin Glargine (Lantus) 0 units SC ONE PRN PRN Reason: PER OPEN HEART ORDERS Stop: 03/07/18 17:00 Insulin Human Regular (Humulin R) 0 units SC Q4H PRN; Protocol PRN Reason: POST OP SLIDING SCALE Morphine Sulfate (Morphine) 2 mg SLOW IVP Q15MIN PRN PRN Reason: Severe Pain (7-10) Ondansetron HCl (Zofran) 4 mg IVP Q6H PRN PRN Reason: Nausea/Vomiting Potassium Chloride (Kcl) 20 meq IVPB PRN PRN PRN Reason: K level </= 4.0 Promethazine HCl (Phenergan) 6.25 mg IM Q4H PRN PRN Reason: Nausea/Vomiting Sodium Chloride (Flush - Normal Saline) 10 ml IVF Q12HR [facility]
[2018-03-06] MEDS ORDERED: DOPamine 400 MG/D5W 250 ML 0 ML ONE (19:00)
[2018-03-06 19:10] LABS: INR-International Normal Ratio 1.3; PTT 30.4 SEC (22.9-36.1)
[2018-03-06 19:21] LABS: Hemoglobin 12.7 g/dL (14.0-18.0); Mean Corpuscular HGB CONC 35.5 g/dL (32.0-36.0); Mean Corpuscular Hemoglobin 34.5 pg (27.0-31.0); Mean Corpuscular Volume 97.3 fl (80.0-94.0); RBC Distribution Width 11.4 % (11.5-14.5); Red Blood Cell (RBC) Count 3.67 mill/uL (4.70-6.10); White Blood Cell (WBC) Count 11.5 thou/uL (4.8-10.8)
[2018-03-06 19:24] LABS: Anion Gap 11 mmol/L (10-20); BUN (Urea Nitrogen) 14 mg/dL (8.4-25.7); Calc. Creatinine Clearance 92 mL/min (70-130); Calcium 8.1 mg/dL (7.8-10.44); Carbon Dioxide 21 mmol/L (22-29); Chloride 116 mmol/L (98-107); Estimated GFR-MDRD Greater than 90; Glucose 147 mg/dL (70-105); Potassium 3.9 mmol/L (3.5-5.1); Sodium 144 mmol/L (136-145)
[2018-03-06 19:30] LABS: #Eosinphils 0.2 thou/uL (0.0-0.7); #Lymphocytes 2.3 thou/uL (1.20-3.40); #Monocytes 0.5 thou/uL (0.11-0.59); #Neutrophils 8.6 thou/uL (1.40-6.50); %Basophils 0.1 % (0.0-1.0); %Eosinophils 1.3 % (0.0-10.0); %Lymphocytes 19.9 % (21.0-51.0); %Monocytes 4.4 % (0.0-10.0); %Neutrophils 74.3 % (42.0-75.0); Mean Platelet Volume 8.8 fL (7.4-10.4); PLT Morphology Comment Appears Decreased; Platelet Count 107 thou/uL (130-400)
[2018-03-06] MEDS: Fentanyl 100 MCG/2 ML VIAL SLOW IVP PRN ×2 (19:51→21:44)
[2018-03-06] MEDS: Sodium Chloride 0.9% 1,000 ML IV SCH (19:53)
[2018-03-06] MEDS: Atorvastatin Calcium 40 MG TAB PO SCH (19:53)
[2018-03-06 20:00] LABS: CO2 Tension 39.1 mmHg (35.0-45.0); O2 Tension (PaO2) 99.4 mmHg (80.0-100.0); pH, Arterial 7.35 (7.35-7.45)
[2018-03-06 20:01] LABS: Base Excess (BEa) -4.3 mEq/L (0 (+/-) 2.5); Calcium, Ionized 1.3 mmol/L (1.12-1.30); Hematocrit-ABG 37.1 % (42.0-52.0); Puncture Site ALINE
[2018-03-06 20:02] LABS: ALV-art Gradient 208.225 (0-20)
--- NOTE | 2018-03-06 20:13 | RAD ---
CHEST ONE VIEW: HISTORY: Post open heart surgery. COMPARISON: Radiograph from 03/03/2018. FINDINGS: The patient is intubated with the endotracheal tube tip proximal to the cornelio approximately 2 cm. T he central venous catheter tip is in the right atrium. Thoracostomy and mediastinal drains are present. No large pneumothorax is appreciated. Small right effusion. Mild atelectasis. IMPRESSION: Expected postoperative changes without complication. POS: ALFREDO
[2018-03-06] MEDS: Insulin Regular 300 UNITS/3 ML VIAL SC PRN (20:21)
[2018-03-06] MEDS: Potassium Chloride 20 MEQ/100 ML PREMIX BAG IVPB PRN (20:30)
[2018-03-06] MEDS ORDERED: Morphine 4 MG/ML VIAL SLOW IVP PRN (21:31)
[2018-03-06] MEDS: Ondansetron HCl/PF 4 MG/2 ML Vial IVP PRN (21:41)
[2018-03-06] MEDS: Famotidine/PF 20 mg/2ml Vial SLOW IVP SCH (21:43)
[2018-03-07 00:10] LABS: Hemoglobin 11.7 g/dL (14.0-18.0)
[2018-03-07 00:24] LABS: Potassium 3.9 mmol/L (3.5-5.1)
[2018-03-07] MEDS: Potassium Chloride 20 MEQ/100 ML PREMIX BAG IVPB PRN ×2 (00:34→06:32)
--- NOTE | 2018-03-07 01:30 | OP ---
DATE OF PROCEDURE: 03/06/2018 PROCEDURES PERFORMED: Coronary artery bypass grafting x3 with right internal mammary artery to the P DA and reverse greater saphenous vein graft from the aorta to the first obtuse marginal and to the se cond diagonal. A 5-[place] left femoral arterial line with ultrasound guidance and right subclavian c entral line. PREOPERATIVE DIAGNOSIS: Coronary artery disease, status post non-ST elevation myocardial infarction with an ischemic cardiomyopathy. POSTOPERATIVE DIAGNOSIS: Coronary artery disease, status post ST elevation myocardial infarction wit h an ischemic cardiomyopathy. SURGEON: Josh Deluna M.D. BOBBIN COLLECTOR: Dr. Ayers. ANESTHESIA: General endotracheal anesthesia. INDICATIONS: The patient is a 53-year-old diabetic smoker with several days of severe heartburn type pain, who had a witnessed episode in the emergency room that was associated with diaphoresis and an ashen color. He had positive troponins consistent with a non-ST elevation myocardial infarction. Ca rdiac catheterization demonstrated a very high grade lesion of the distal right coronary with much mo re modest disease in an obtuse marginal and then a diagonal. The LAD was a diminutive vessel that wa s essentially free of any obstructive disease except very distally. He had marked inferoapical akine sis with an LVEDP of 10. He is now taken to the operating room for revascularization. FINDINGS: Pump time 63 minutes. Crossclamp time 30 minutes. Good quality BARBARA and saphenous vein. The diagonal was about a 1.5 mm vessel with plaque at its origin. The OM1 was about a 1.5-2 mm intra myocardial vessel. It was of good quality were grafted. The distal right coronary and proximal PDA had extensive plaque. The PDA was open across and the island of plaque in the proximal segment where it measured about 1.5-2 mm. NARRATIVE REPORT: After informed consent was obtained, the patient was taken to the operating room a nd placed in supine position on the operating table. After the induction of a general endotracheal a nesthesia, the veins in his lower extremities were ultrasonographically interrogated and it is common femoral arteries were identified and marked. The patient's right upper chest is prepped and draped in sterile fashion. He was placed in Trendelenburg and a triple-lumen central line kit was used to p lace the right subclavian central line by the Seldinger technique. All three ports easily aspirated and flushed. The line was secured to the skin with suture. The patient's torso groins and lower ext remities were prepped and draped in sterile fashion. The greater saphenous vein was harvested from t he right thigh endoscopically and the harvest sites closed with subcutaneous and subcuticular Vicryl. Insertion of a 5-[place] femoral arterial sheath was placed in the left common femoral artery by the Seldinger technique. Easily aspirated and flushed and it was secured to the skin with suture. The median sternotomy was performed. The right pleural space was entered and the right internal mammary artery was harvested as a skeletonized in situ graft from the level of the xiphoid to the level of th e innominate vein. The patient was heparinized. The mammary was ligated and divided distally. Ther e was excellent flow through the mammary, which was instilled intraluminally with papaverine solution . The mammary bed was inspected for hemostasis. The BARBARA retractor was placed with a sternal retract or. The pericardium was opened and marsupialized. The aorta was palpated and was soft. A double co ncentric pursestring of #2-0 [place] was placed in the ascending aorta just within the pericardial r eflection and a single pursestring was placed in the right atrial appendage. Aortic and venous cannu lae were inserted and secured by their pursestrings. Cardiopulmonary bypass was instituted and the p atient was systemically cooled. The heart was examined. The vessels to be bypassed were identified. A cruciate incision was made about the level of the junction of the inferior cava with the right at rium through which the right mammary could be passed without developing the plane between the aorta a nd the pulmonary artery. An aortic cross clamp was applied and cardioplegia was administered through an aortic root needle. When arrested been achieved, attention was turned to the first obtuse margin al. It was dissected out and opened with a [place] blade and [place] scissors. A reverse greater sa phenous vein was anastomosed their end-to-side with running 6-0 Prolene suture and the anastomosis te sted by flushing cold cardioplegic down the graft. The second diagonal was then opened and grafted i n a similar fashion. The right coronary system was then examined. The crux and proximal PDA were ex posed. A longitudinal arteriotomy was made in the PDA proximally and extended distally to cross over an island of plaque after which the PDA appeared to be free of any obvious disease. The right mamma ry was oriented and generously spatulated and anastomosed there end-to-side with running 7-0 Prolene. The aortic crossclamp was replaced with a partial occluding clamp. An aortotomy was made in the as cending aorta with a scalpel and punch. The diagonal graft was anastomosed end-to-side to the more p roximal aortotomy and the OM graft to the more distal aortotomy. The vein grafts were occluded and t he partial occluding clamp removed. The vein grafts were deaired. The anastomoses were inspected fo r hemostasis. Posterior pericardial and right pleural drains were brought out through separate incis ions and secured with suture. Right atrial and right ventricular temporary epicardial pacing wires w ere placed. The proximal vein graft anastomoses were marked with small Hemoclips. The patient was t hen easily from cardiopulmonary bypass. The aortic and venous cannula removed and the purs estring secured. Protamine was administered. When hemostasis was Adequate, an anterior mediastinal drain was placed and the pericardium was easily closed over with running Vicryl. The sternum was em pproximated with #7 stainless steel wires. Fascia closed over the wires with heavy Vicryl. Subcutan eous tissue was irrigated and reapproximated and the skin was closed with Vicryl subcuticular stitch. The wounds were dressed. The patient was taken to the intensive care unit in stable condition.
[2018-03-07 01:55] LABS: Actual Bicarbonate (HCO3a) 18.9 mEq/L (22-26); Base Excess (BEa) -5.6 mEq/L (0 (+/-) 2.5); CO2 Tension 33.5 mmHg (35.0-45.0); Calcium, Ionized 1.2 mmol/L (1.12-1.30); Hematocrit-ABG 30.2 % (42.0-52.0); Hemoglobin (Hb) 11.5 g/dL (14.0-18.0); O2 Tension (PaO2) 85.4 mmHg (80.0-100.0); pH, Arterial 7.37 (7.35-7.45)
[2018-03-07 01:56] LABS: ALV-art Gradient 157.925 (0-20); Puncture Site ALINE
[2018-03-07] MEDS: Sodium Chloride 0.9% 1,000 ML IV SCH (04:16)
[2018-03-07 04:45] LABS: #Monocytes 1.9 thou/uL (0.11-0.59); #Neutrophils 12.3 thou/uL (1.40-6.50); %Basophils 0.2 % (0.0-1.0); %Eosinophils 0.1 % (0.0-10.0); %Lymphocytes 6.7 % (21.0-51.0); %Monocytes 12.2 % (0.0-10.0); %Neutrophils 80.8 % (42.0-75.0); Hemoglobin 11.4 g/dL (14.0-18.0); Mean Corpuscular HGB CONC 34.7 g/dL (32.0-36.0); Mean Corpuscular Volume 98.1 fl (80.0-94.0); Mean Platelet Volume 9.2 fL (7.4-10.4); Platelet Count 151 thou/uL (130-400); RBC Distribution Width 11.5 % (11.5-14.5); Red Blood Cell (RBC) Count 3.35 mill/uL (4.70-6.10); White Blood Cell (WBC) Count 15.2 thou/uL (4.8-10.8)
[2018-03-07] MEDS: Ondansetron HCl/PF 4 MG/2 ML Vial IVP PRN (05:07)
[2018-03-07 05:12] LABS: Anion Gap 11 mmol/L (10-20); BUN (Urea Nitrogen) 17 mg/dL (8.4-25.7); Calc. Creatinine Clearance 70 mL/min (70-130); Calcium 8.4 mg/dL (7.8-10.44); Carbon Dioxide 19 mmol/L (22-29); Chloride 121 mmol/L (98-107); Estimated GFR-MDRD 78; Glucose 124 mg/dL (70-105); Potassium 3.1 mmol/L (3.5-5.1); Sodium 148 mmol/L (136-145)
[2018-03-07] MEDS ORDERED: Aspirin 325 MG TAB PO SCH (09:00)
--- NOTE | 2018-03-07 09:13 | RAD ---
PORTABLE AP CHEST RADIOGRAPH: Date: 03-07-18 History: Post open heart surgery. Follow up. FINDINGS: Endotracheal tube, right subclavian central venous catheter, mediastinal drains and right thoracostom y tube remain in place and unchanged in position. This exam is obtained with shallow depth of inspira tion which accentuates the cardiac silhouette and bronchovascular markings. No pneumothorax or pleura l effusion is appreciated. Thoracic aorta appears ectatic. Post-surgical change related to CABG are a gain present. There has been no interval change from the prior exam. IMPRESSION: Stable chest. Lines and tubes stable in position. POS: OFF
[2018-03-07] MEDS: Insulin Regular 300 UNITS/3 ML VIAL SC PRN ×4 (09:45→21:11)
[2018-03-07] MEDS: Famotidine/PF 20 mg/2ml Vial SLOW IVP SCH ×2 (10:33→21:20)
[2018-03-07] MEDS: HYDROcodone/Acetaminophen 5/325 mg Tablet PO PRN ×2 (11:57→20:51)
--- NOTE | 2018-03-07 15:49 | PRG ---
DATE OF SERVICE: 03/07/2018 SUBJECTIVE: Mr. Jordan was extubated per protocol this morning. His blood pressure at noon was 136/8 2, heart rate was 99, respiratory rate is 18, oximetry is 92. He did not want to do incentive spirom etry or get out of bed this morning, but after explaining to him that he was going to end up with pne umonia, he agreed to get out of bed. He sat up in the chair most of the morning. Intake and output coming in today was negative 294 mL. OBJECTIVE: LUNGS: Clear. HEART: Regular rhythm. ABDOMEN: Soft. EXTREMITIES: Without asymmetry. IMAGING: Chest radiograph shows no new infiltrates. IMPRESSION: Status post coronary bypass grafting, clinically stable after extubation. Still has svetlana st tubes in place. We will follow along with the other physician's caring for him.
[2018-03-07] MEDS ORDERED: Artificial Tears 18 DROP/0.9 ML EA EYE PRN (17:12)
[2018-03-07] MEDS ORDERED: Bisacodyl 5 MG TAB PO PRN (17:12)
[2018-03-07] MEDS ORDERED: Bisacodyl 10 MG SUPP PR PRN (17:12)
[2018-03-07] MEDS ORDERED: Mineral Oil ENEMA PR PRN (17:12)
[2018-03-07] MEDS ORDERED: diphenhydrAMINE 25 MG CAP PO PRN (17:12)
[2018-03-07] MEDS ORDERED: Guaifenesin DM 100-10/5 ML UDCUP PO PRN (17:12)
[2018-03-07] MEDS ORDERED: Nitroglycerin 0.4 MG TAB (25 Tab Bottle) SL PRN (17:12)
[2018-03-07] MEDS ORDERED: Zolpidem Tartrate 5 MG TAB PO PRN (17:12)
[2018-03-07] MEDS ORDERED: Mag-Al 1200 mg/1200 mg/30 ML UDCUP PO PRN (17:12)
[2018-03-07] MEDS ORDERED: Furosemide 40 MG/4 ML VIAL SLOW IVP SCH (17:15)
[2018-03-07] MEDS: Ketorolac Tromethamine 30 MG/ML VIAL IVP SCH (17:55)
[2018-03-07] MEDS: Atorvastatin Calcium 40 MG TAB PO SCH (20:51)
[2018-03-08] MEDS: Ketorolac Tromethamine 30 MG/ML VIAL IVP SCH ×3 (00:46→12:30)
[2018-03-08] MEDS: Sodium Chloride 0.9% 1,000 ML IV SCH (02:17)
[2018-03-08] MEDS ORDERED: Ondansetron ODT 4 MG TAB PO PRN (04:28)
[2018-03-08 04:48] LABS: Anion Gap 10 mmol/L (10-20); BUN (Urea Nitrogen) 18 mg/dL (8.4-25.7); Calc. Creatinine Clearance 75 mL/min (70-130); Calcium 8.7 mg/dL (7.8-10.44); Carbon Dioxide 25 mmol/L (22-29); Chloride 114 mmol/L (98-107); Estimated GFR-MDRD 77; Glucose 97 mg/dL (70-105); Potassium 3.7 mmol/L (3.5-5.1); Sodium 145 mmol/L (136-145)
[2018-03-08 05:09] LABS: #Lymphocytes 1.8 thou/uL (1.20-3.40); #Monocytes 2.1 thou/uL (0.11-0.59); %Basophils 0.2 % (0.0-1.0); %Eosinophils 0.2 % (0.0-10.0); %Lymphocytes 13.1 % (21.0-51.0); %Monocytes 14.9 % (0.0-10.0); %Neutrophils 71.7 % (42.0-75.0); Mean Corpuscular Hemoglobin 34.7 pg (27.0-31.0); PLT Morphology Comment Appears Adequate; Platelet Count 113 thou/uL (130-400); RBC Distribution Width 11.6 % (11.5-14.5); Red Blood Cell (RBC) Count 2.88 mill/uL (4.70-6.10)
--- NOTE | 2018-03-08 09:15 | RAD ---
PORTABLE CHEST ONE VIEW: Date: 03-08-18 Time: 3:57 a.m. History: Post op open heart surgery. FINDINGS/IMPRESSION: Comparison made with exam from previous day. There has been interval removal of the endotracheal tube, right chest tube, and mediastinal drain. Ch anges of median sternotomy are again seen. Right subclavian central line remains in place. There is e levated of the right hemidiaphragm. No pneumothoraces or large effusions are seen. Atelectatic change s in the left lung base. POS: NURYS
[2018-03-08] MEDS: Aspirin 325 mg Enteric Coated Tablet PO SCH (09:32)
[2018-03-08] MEDS: Famotidine 20 MG TAB PO SCH ×2 (09:32→21:45)
--- NOTE | 2018-03-08 09:50 | PDOC.PN ---
- Subjective Encounter Start Date: 03/07/18 Encounter Start Time: 15:00 Patient is seen today, alert and oriented , at bedside, No chest pain, No nausea, Pt has elevated BG discussed plan with nurse. - Objective Resuscitation Status: Resuscitation Status FULL:Full Resuscitation MAR Reviewed: Yes Vital Signs & Weight: Vital Signs (12 hours) Temp Pulse Resp Pulse Ox 03/08/18 08:00 97.3 F L 81 18 98 03/08/18 07:00 97.3 F L 03/08/18 00:00 98.0 F Weight Weight 129 lb 3.054 oz Most Recent Monitor Data Heart Rate from ECG 76 NIBP 144/74 NIBP BP-Mean 107 Respiration from ECG 14 SpO2 95 I&O: 03/07/18 03/08/18 03/09/18 06:59 06:59 06:59 Intake Total 1536 1363 120 Output Total 1830 2380 70 Balance -294 -1017 50 Result Diagrams: 03/08/18 04:25 03/08/18 04:25 Additional Labs: Accuchecks 03/08/18 03/08/18 03/07/18 05:09 00:39 21:12 POC Glucose 101 116 H 150 H 03/07/18 03/07/18 16:06 12:48 POC Glucose 162 H 186 H Radiology Reviewed by me: Yes Phys Exam - Physical Examination HEENT: PERRLA, moist MMs Neck: no nodes, no JVD Respiratory: no wheezing, no rales Cardiovascular: RRR, no significant murmur Gastrointestinal: soft, non-tender Musculoskeletal: no edema, pulses present Psychiatric: normal affect, A&O x 3 Skin: no rash, normal turgor Dx/Plan (1) S/P CABG (coronary artery bypass graft) Code(s): Z95.1 - PRESENCE OF AORTOCORONARY BYPASS GRAFT Status: Acute Comment: CT surgery following, pt on Chest tubes, will kritsaley Monitor In ICU. (2) NSTEMI (non-ST elevated myocardial infarction) Code(s): I21.4 - NON-ST ELEVATION (NSTEMI) MYOCARDIAL INFARCTION Status: Acute Comment: Stbale, no chest pain, pt on Aspirin/ BB/ Statin. (3) Alcohol abuse Code(s): F10.10 - ALCOHOL ABUSE, UNCOMPLICATED Status: Chronic Comment: contoinue on Thiamine/ Folic acid, no withdrawls/. (4) DM type 2 (diabetes mellitus, type 2) Status: Chronic Qualifiers: Diabetes mellitus nursing home insulin use: without nursing home use Diabetes mellitus complication status: with unspecified complications Qualified Code(s) : E11.8 - Type 2 diabetes mellitus with unspecified complications Comment: Hold Metformin till dischagre, continue with SSI to keep BG 140-180 (5) Dyslipidemia Code(s): E78.5 - HYPERLIPIDEMIA, UNSPECIFIED Status: Chronic Comment: stbale. Sean davis monitor. (6) Tobacco abuse Code(s): Z72.0 - TOBACCO USE Status: Chronic (7) Hyperlipemia Code(s): E78.5 - HYPERLIPIDEMIA, UNSPECIFIED Status: Acute Comment: statin on Board. - Plan cont current plan of care, plan discussed w/ family, PT/OT, social media strategist, incentive spirometry, DVT proph w/lovenox * . - Discharge Day Encounter end time: 15:35 Review of Systems - Review of Systems Eyes: negative: Pain, Vision Change, Conjunctivae Inflammation, Eyelid Inflammation, Redness, Other ENT: negative: Ear Pain, Ear Discharge, Nose Pain, Nose Discharge, Nose Congestion, Mouth Pain, Mouth Swelling, Throat Pain, Throat Swelling, Other Respiratory: negative: Cough, Dry, Shortness of Breath, Hemoptysis, SOB with Excertion, Pleuritic Pain, Sputum, Wheezing Cardiovascular: negative: chest pain, palpitations, orthopnea, paroxysmal nocturnal dyspnea, edema, light headedness, other Gastrointestinal: negative: Nausea, Vomiting, Abdominal Pain, Diarrhea, Constipation, Melena, Hematochezia, Other Genitourinary: negative: Dysuria, Frequency, Incontinence, Hematuria, Retention , Other Musculoskeletal: negative: Neck Pain, Shoulder Pain, Arm Pain, Back Pain, Hand Pain, Leg Pain, Foot Pain, Other - Medications/Allergies Allergies/Adverse Reactions: Allergies Allergy/AdvReac Type Severity Reaction Status Date / Time No Known Drug Allergies Allergy Verified 03/03/18 15:22 Medications: Current Medications Hydrocodone Bitart/Acetaminophen ([place] 5/325) 1 tab PO Q4H PRN PRN Reason: Moderate Pain (4-6) Hydrocodone Bitart/Acetaminophen ([place] 5/325) 2 tab PO Q4H PRN PRN Reason: Severe Pain (7-10) Last Admin: 03/07/18 20:51 Dose: 2 tab Al Hydroxide/Mg Hydroxide (Maalox) 30 ml PO Q4H PRN PRN Reason: Indigestion Albuterol/Ipratropium (Duoneb) 3 ml NEB Q8RS-EI PRN PRN Reason: SHORTNESS OF BREATH Artificial Tears (Tears Naturale) 0 drop EA EYE PRN PRN PRN Reason: Dry Eyes Aspirin (Ecotrin) 325 mg PO DAILY [facility] Last Admin: 03/08/18 09:32 Dose: 325 mg Atorvastatin Calcium (Lipitor) 40 mg PO HS [facility] Last Admin: 03/07/18 20:51 Dose: 40 mg Beer (Beer) 1 each PO TID-WM EAN Bisacodyl (Dulcolax) 10 mg PO Q12H PRN PRN Reason: Constipation Bisacodyl (Dulcolax) 10 mg [place] Q12H PRN PRN Reason: Constipation Dextrose/Water (Dextrose 50%) 25 gm SLOW IVP PRN PRN PRN Reason: PER HYPOGLYCEMIC PROTOCOL Diphenhydramine HCl (Benadryl) 25 mg PO Q6H PRN PRN Reason: Itching & Insomnia or Jamil Laith Famotidine (Pepcid) 20 mg PO Q12HR [facility] Last Admin: 03/08/18 09:32 Dose: 20 mg Glucagon (Glucagon) 1 mg SC PRN PRN PRN Reason: PER HYPOGLYCEMIC PROTOCOL Guaifenesin/Dextromethorphan (Robitussin Dm) 15 ml PO Q4H PRN PRN Reason: Cough Dextrose/Water (D5w) 1,000 mls @ 0 mls/hr IV INF PRN; As Directed PRN Reason: PRN HYPOGLYCEMIC PROTOCOL Insulin Human Regular 100 (units/ Sodium Chloride) 101 mls @ 0 mls/hr IVPB INF EAN; As Directed PRN Reason: Protocol Insulin Glargine (Lantus) 0 units SC ONE PRN PRN Reason: PER OPEN HEART ORDERS Stop: 03/10/18 17:51 Insulin Human Regular (Humulin R) 0 units SC Q4H PRN; Protocol PRN Reason: POST OP SLIDING SCALE Last Admin: 03/07/18 21:11 Dose: 3 unit Ketorolac Tromethamine (Toradol) 30 mg IVP Q6HR [facility] Stop: 03/08/18 12:01 Last Admin: 03/08/18 05:09 Dose: 30 mg Mineral Oil (Fleet Mineral Oil) 133 ml [place] DAILYPRN PRN PRN Reason: Constipation Nitroglycerin (Nitrostat) 0.4 mg SL Q5MIN PRN PRN Reason: Chest Pain Ondansetron HCl (Zofran Odt) 4 mg PO Q6H PRN PRN Reason: Nausea/Vomiting Last Admin: 03/08/18 04:33 Dose: 4 mg Sodium Chloride (Flush - Normal Saline) 10 ml IVF Q12HR EAN Last Admin: 03/08/18 09:32 Dose: 10 ml Zolpidem Tartrate (Ambien) 5 mg PO HSPRN PRN PRN Reason: Insomnia
[2018-03-08] MEDS: Famotidine/PF 20 mg/2ml Vial SLOW IVP SCH (11:58)
[2018-03-08] MEDS: BEER 1 CAN PO SCH ×3 (11:59→16:38)
--- NOTE | 2018-03-08 15:00 | PRG ---
DATE OF SERVICE: 03/08/2018 SUBJECTIVE: Mr. Jordan is transferred out of the Critical Care Unit. He is afebrile, heart rate 69, respiratory rate 16, oximetry is 93 on room air, blood pressure 124/68. Overall, there is no change. Hemoglobin stable at 10 grams, yesterday was 11.4, prior to that it was 11.7. Electrolytes are nor mal. He is mildly hyperchloremic, otherwise no concerns. IMPRESSION: 1. Status post coronary artery bypass grafting. 2. History of medical noncompliance. PLAN: We will sign off.
[2018-03-08] MEDS: Insulin Regular 300 UNITS/3 ML VIAL SC PRN (17:22)
--- NOTE | 2018-03-08 20:18 | EKG ---
Test Reason : STAT Blood Pressure : / mmHG Vent. Rate : 088 BPM Atrial Rate : 088 BPM P-R Int : 160 ms QRS Dur : 076 ms QT Int : 432 ms P-R-T Axes : 023 -29 -70 degrees QTc Int : 522 ms Normal sinus rhythm Inferior infarct (cited on or before 03-MAR-2018) Prolonged QT Abnormal ECG When compared with ECG of 03-MAR-2018 09:54, (Unconfirmed) QT has lengthened Confirmed by TORI COX (2) on 03/08/2018 8:17:32 PM Referred By: CAROLINA Confirmed By:TORI COX
[2018-03-08] MEDS: Atorvastatin Calcium 40 MG TAB PO SCH (21:45)
[2018-03-09 05:23] LABS: #Eosinphils 0.1 thou/uL (0.0-0.7); #Lymphocytes 1.8 thou/uL (1.20-3.40); #Monocytes 1.3 thou/uL (0.11-0.59); #Neutrophils 8.9 thou/uL (1.40-6.50); %Basophils 0.2 % (0.0-1.0); %Eosinophils 0.8 % (0.0-10.0); %Lymphocytes 15.1 % (21.0-51.0); %Monocytes 10.8 % (0.0-10.0); %Neutrophils 73.2 % (42.0-75.0); Hemoglobin 9.4 g/dL (14.0-18.0); Mean Corpuscular HGB CONC 34.7 g/dL (32.0-36.0); Mean Corpuscular Hemoglobin 34.1 pg (27.0-31.0); Mean Corpuscular Volume 98.2 fl (80.0-94.0); Mean Platelet Volume 9.5 fL (7.4-10.4); Platelet Count 124 thou/uL (130-400); RBC Distribution Width 11.5 % (11.5-14.5); Red Blood Cell (RBC) Count 2.75 mill/uL (4.70-6.10); White Blood Cell (WBC) Count 12.2 thou/uL (4.8-10.8)
[2018-03-09 05:40] LABS: Anion Gap 10 mmol/L (10-20); BUN (Urea Nitrogen) 15 mg/dL (8.4-25.7); Calc. Creatinine Clearance 89 mL/min (70-130); Calcium 8.7 mg/dL (7.8-10.44); Carbon Dioxide 25 mmol/L (22-29); Chloride 110 mmol/L (98-107); Estimated GFR-MDRD Greater than 90; Glucose 137 mg/dL (70-105); Potassium 3.6 mmol/L (3.5-5.1); Sodium 141 mmol/L (136-145)
[2018-03-09] MEDS: Famotidine 20 MG TAB PO SCH ×2 (07:58→21:33)
[2018-03-09] MEDS: Aspirin 325 mg Enteric Coated Tablet PO SCH (07:59)
[2018-03-09] MEDS: BEER 1 CAN PO SCH ×3 (08:00→16:01)
[2018-03-09] MEDS: Insulin Regular 300 UNITS/3 ML VIAL SC PRN ×4 (08:00→21:43)
--- NOTE | 2018-03-09 09:00 | RAD ---
AP VIEW OF THE CHEST: INDICATION: History of open heart surgery. COMPARISON: Prior study dated 03/08/18. FINDINGS: There is stable elevation of the right hemidiaphragm. Right subclavian central venous catheter is st able. Midline sternotomy changes are similar. Mild cardiomegaly persists. No bob pleural effusio n, pulmonary vascular congestion, or pneumothorax is evident. IMPRESSION: Stable exam. POS: NURYS
--- NOTE | 2018-03-09 14:51 | PDOC.PN ---
- Subjective Encounter Start Date: 03/08/18 Encounter Start Time: 11:00 Patient is seen today, alert and oriented. will be Moveed to Tele floor Today, off of Chest tubes. - Objective Resuscitation Status: Resuscitation Status FULL:Full Resuscitation MAR Reviewed: Yes Vital Signs & Weight: Vital Signs (12 hours) Temp Pulse Pulse Pulse Resp BP BP 03/09/18 13:52 80 77 128/70 109/66 03/09/18 12:30 98.6 F 80 20 03/09/18 09:13 97 71 149/75 H 121/71 03/09/18 08:00 98.9 F 78 18 03/09/18 03:13 98.7 F 86 20 BP Pulse Ox Pulse Ox Pulse Ox 03/09/18 13:52 96 93 L 03/09/18 12:30 111/64 94 L 03/09/18 09:13 97 92 L 03/09/18 08:00 119/75 95 03/09/18 03:13 131/76 96 Weight Weight 141 lb 11.2 oz Most Recent Monitor Data Heart Rate from ECG 65 NIBP 99/60 NIBP BP-Mean 78 Respiration from ECG 12 SpO2 93 I&O: 03/08/18 03/09/18 03/10/18 06:59 06:59 06:59 Intake Total 1363 1440 Output Total 2380 1020 Balance -1017 420 Result Diagrams: 03/09/18 04:21 03/09/18 04:21 Additional Labs: Accuchecks 03/09/18 03/09/18 03/09/18 12:45 06:12 00:14 POC Glucose 219 H 141 H 135 H 03/08/18 03/08/18 20:53 16:58 POC Glucose 199 H 175 H Radiology Reviewed by me: Yes Phys Exam - Physical Examination HEENT: PERRLA, moist MMs Neck: no nodes, no JVD Respiratory: no wheezing, no rales Cardiovascular: RRR, no significant murmur Gastrointestinal: soft, non-tender Musculoskeletal: no edema, pulses present Neurological: non-focal, normal sensation Psychiatric: normal affect, A&O x 3 Dx/Plan (1) S/P CABG (coronary artery bypass graft) Code(s): Z95.1 - PRESENCE OF AORTOCORONARY BYPASS GRAFT Status: Acute Comment: CT surgery following, pt off of Chest tubes, will transfer to Tele floor. (2) NSTEMI (non-ST elevated myocardial infarction) Code(s): I21.4 - NON-ST ELEVATION (NSTEMI) MYOCARDIAL INFARCTION Status: Acute Comment: Stbale, no chest pain, pt on Aspirin/ BB/ Statin. (3) Alcohol abuse Code(s): F10.10 - ALCOHOL ABUSE, UNCOMPLICATED Status: Chronic Comment: contoinue on Thiamine/ Folic acid, no withdrawls/. (4) DM type 2 (diabetes mellitus, type 2) Status: Chronic Qualifiers: Diabetes mellitus adjunct faculty for medical terminology insulin use: without adjunct faculty for medical terminology use Diabetes mellitus complication status: with unspecified complications Qualified Code(s) : E11.8 - Type 2 diabetes mellitus with unspecified complications Comment: Hold Metformin till dischagre, continue with SSI to keep BG 140-180 (5) Dyslipidemia Code(s): E78.5 - HYPERLIPIDEMIA, UNSPECIFIED Status: Chronic Comment: shonda. Will closley monitor. (6) Tobacco abuse Code(s): Z72.0 - TOBACCO USE Status: Chronic (7) Hyperlipemia Code(s): E78.5 - HYPERLIPIDEMIA, UNSPECIFIED Status: Acute Comment: statin on Board. - Plan cont current plan of care, PT/OT, respiratory therapy, incentive spirometry, out of bed/ambulate, DVT proph w/lovenox * . - Discharge Day Encounter end time: 11:35 Review of Systems - Review of Systems ENT: negative: Ear Pain, Ear Discharge, Nose Pain, Nose Discharge, Nose Congestion, Mouth Pain, Mouth Swelling, Throat Pain, Throat Swelling, Other Respiratory: negative: Cough, Dry, Shortness of Breath, Hemoptysis, SOB with Excertion, Pleuritic Pain, Sputum, Wheezing Cardiovascular: chest pain Gastrointestinal: negative: Nausea, Vomiting, Abdominal Pain, Diarrhea, Constipation, Melena, Hematochezia, Other Musculoskeletal: negative: Neck Pain, Shoulder Pain, Arm Pain, Back Pain, Hand Pain, Leg Pain, Foot Pain, Other - Medications/Allergies Allergies/Adverse Reactions: Allergies Allergy/AdvReac Type Severity Reaction Status Date / Time No Known Drug Allergies Allergy Verified 03/03/18 15:22 Medications: Current Medications Hydrocodone Bitart/Acetaminophen ([place] 5/325) 1 tab PO Q4H PRN PRN Reason: Moderate Pain (4-6) Last Admin: 03/09/18 07:59 Dose: 1 tab Hydrocodone Bitart/Acetaminophen ([place] 5/325) 2 tab PO Q4H PRN PRN Reason: Severe Pain (7-10) Last Admin: 03/07/18 20:51 Dose: 2 tab Al Hydroxide/Mg Hydroxide (Maalox) 30 ml PO Q4H PRN PRN Reason: Indigestion Albuterol/Ipratropium (Duoneb) 3 ml NEB [id number] PRN PRN Reason: SHORTNESS OF BREATH Artificial Tears (Tears Naturale) 0 drop EA EYE PRN PRN PRN Reason: Dry Eyes Aspirin (Ecotrin) 325 mg PO DAILY [facility] Last Admin: 03/09/18 07:59 Dose: 325 mg Atorvastatin Calcium (Lipitor) 40 mg PO HS [facility] Last Admin: 03/08/18 21:45 Dose: 40 mg Beer (Beer) 1 each PO TID-WM [facility] Last Admin: 03/09/18 13:11 Dose: Not Given Bisacodyl (Dulcolax) 10 mg PO Q12H PRN PRN Reason: Constipation Bisacodyl (Dulcolax) 10 mg [place] Q12H PRN PRN Reason: Constipation Dextrose/Water (Dextrose 50%) 25 gm SLOW IVP PRN PRN PRN Reason: PER HYPOGLYCEMIC PROTOCOL Diphenhydramine HCl (Benadryl) 25 mg PO Q6H PRN PRN Reason: Itching & Insomnia or Jamil Laith Famotidine (Pepcid) 20 mg PO Q12HR [facility] Last Admin: 03/09/18 07:58 Dose: 20 mg Glucagon (Glucagon) 1 mg SC PRN PRN PRN Reason: PER HYPOGLYCEMIC PROTOCOL Guaifenesin/Dextromethorphan (Robitussin Dm) 15 ml PO Q4H PRN PRN Reason: Cough Dextrose/Water (D5w) 1,000 mls @ 0 mls/hr IV INF PRN; As Directed PRN Reason: PRN HYPOGLYCEMIC PROTOCOL Insulin Human Regular 100 (units/ Sodium Chloride) 101 mls @ 0 mls/hr IVPB INF EAN; As Directed PRN Reason: Protocol Insulin Glargine (Lantus) 0 units SC ONE PRN PRN Reason: PER OPEN HEART ORDERS Stop: 03/10/18 17:51 Insulin Human Regular (Humulin R) 0 units SC Q4H PRN; Protocol PRN Reason: POST OP SLIDING SCALE Last Admin: 03/09/18 12:45 Dose: 6 unit Mineral Oil (Fleet Mineral Oil) 133 ml [place] DAILYPRN PRN PRN Reason: Constipation Nitroglycerin (Nitrostat) 0.4 mg SL Q5MIN PRN PRN Reason: Chest Pain Ondansetron HCl (Zofran Odt) 4 mg PO Q6H PRN PRN Reason: Nausea/Vomiting Last Admin: 03/08/18 04:33 Dose: 4 mg Sodium Chloride (Flush - Normal Saline) 10 ml IVF Q12HR EAN Last Admin: 03/09/18 08:00 Dose: 10 ml Zolpidem Tartrate (Ambien) 5 mg PO HSPRN PRN PRN Reason: Insomnia
--- NOTE | 2018-03-09 14:53 | PDOC.PN ---
- Subjective Encounter Start Date: 03/09/18 Encounter Start Time: 13:00 Patient is seen today, alert and oriented. he was in shower and was bleeding from the chest tube site as he removed the plaster before shower. - Objective Resuscitation Status: Resuscitation Status FULL:Full Resuscitation MAR Reviewed: Yes Vital Signs & Weight: Vital Signs (12 hours) Temp Pulse Pulse Pulse Resp BP BP 03/09/18 13:52 80 77 128/70 109/66 03/09/18 12:30 98.6 F 80 20 03/09/18 09:13 97 71 149/75 H 121/71 03/09/18 08:00 98.9 F 78 18 03/09/18 03:13 98.7 F 86 20 BP Pulse Ox Pulse Ox Pulse Ox 03/09/18 13:52 96 93 L 03/09/18 12:30 111/64 94 L 03/09/18 09:13 97 92 L 03/09/18 08:00 119/75 95 03/09/18 03:13 131/76 96 Weight Weight 141 lb 11.2 oz Most Recent Monitor Data Heart Rate from ECG 65 NIBP 99/60 NIBP BP-Mean 78 Respiration from ECG 12 SpO2 93 I&O: 03/08/18 03/09/18 03/10/18 06:59 06:59 06:59 Intake Total 1363 1440 Output Total 2380 1020 Balance -1017 420 Result Diagrams: 03/09/18 04:21 03/09/18 04:21 Additional Labs: Accuchecks 03/09/18 03/09/18 03/09/18 12:45 06:12 00:14 POC Glucose 219 H 141 H 135 H 03/08/18 03/08/18 20:53 16:58 POC Glucose 199 H 175 H Radiology Reviewed by me: Yes Phys Exam - Physical Examination HEENT: PERRLA, moist MMs Neck: no nodes, no JVD Respiratory: no wheezing, no rales Cardiovascular: RRR, no significant murmur Gastrointestinal: soft, non-tender Musculoskeletal: no edema, pulses present Neurological: non-focal, normal sensation Dx/Plan (1) S/P CABG (coronary artery bypass graft) Code(s): Z95.1 - PRESENCE OF AORTOCORONARY BYPASS GRAFT Status: Acute Comment: CT surgery following, pt off of Chest tubes, Has chest tube site bleeding as the sutures came off and plaster on it all came off. Asked nurse to apply steri strips for now and call Dr. King (2) NSTEMI (non-ST elevated myocardial infarction) Code(s): I21.4 - NON-ST ELEVATION (NSTEMI) MYOCARDIAL INFARCTION Status: Acute Comment: Strubén, no chest pain, pt on Aspirin/ BB/ Statin. (3) Alcohol abuse Code(s): F10.10 - ALCOHOL ABUSE, UNCOMPLICATED Status: Chronic Comment: contoinue on Thiamine/ Folic acid, no withdrawls/. (4) DM type 2 (diabetes mellitus, type 2) Status: Chronic Qualifiers: Diabetes mellitus snf insulin use: without snf use Diabetes mellitus complication status: with unspecified complications Qualified Code(s) : E11.8 - Type 2 diabetes mellitus with unspecified complications Comment: Hold Metformin till dischagre, continue with SSI to keep BG 140-180 (5) Dyslipidemia Code(s): E78.5 - HYPERLIPIDEMIA, UNSPECIFIED Status: Chronic Comment: shonda. Will susan monitor. (6) Tobacco abuse Code(s): Z72.0 - TOBACCO USE Status: Chronic (7) Hyperlipemia Code(s): E78.5 - HYPERLIPIDEMIA, UNSPECIFIED Status: Acute Comment: statin on Board. - Plan cont current plan of care, plan discussed w/ family, PT/OT, public health social worker, respiratory therapy, incentive spirometry, out of bed/ambulate, DVT proph w/ lovenox * . - Discharge Day Encounter end time: 13:35 Review of Systems - Review of Systems Eyes: negative: Pain, Vision Change, Conjunctivae Inflammation, Eyelid Inflammation, Redness, Other ENT: negative: Ear Pain, Ear Discharge, Nose Pain, Nose Discharge, Nose Congestion, Mouth Pain, Mouth Swelling, Throat Pain, Throat Swelling, Other Respiratory: negative: Cough, Dry, Shortness of Breath, Hemoptysis, SOB with Excertion, Pleuritic Pain, Sputum, Wheezing Cardiovascular: negative: chest pain, palpitations, orthopnea, paroxysmal nocturnal dyspnea, edema, light headedness, other Musculoskeletal: negative: Neck Pain, Shoulder Pain, Arm Pain, Back Pain, Hand Pain, Leg Pain, Foot Pain, Other Skin: negative: Rash, Lesions, [place], Bruising, Other - Medications/Allergies Allergies/Adverse Reactions: Allergies Allergy/AdvReac Type Severity Reaction Status Date / Time No Known Drug Allergies Allergy Verified 03/03/18 15:22 Medications: Current Medications Hydrocodone Bitart/Acetaminophen ([place] 5/325) 1 tab PO Q4H PRN PRN Reason: Moderate Pain (4-6) Last Admin: 03/09/18 07:59 Dose: 1 tab Hydrocodone Bitart/Acetaminophen ([place] 5/325) 2 tab PO Q4H PRN PRN Reason: Severe Pain (7-10) Last Admin: 03/07/18 20:51 Dose: 2 tab Al Hydroxide/Mg Hydroxide (Maalox) 30 ml PO Q4H PRN PRN Reason: Indigestion Albuterol/Ipratropium (Duoneb) 3 ml NEB [id number] PRN PRN Reason: SHORTNESS OF BREATH Artificial Tears (Tears Naturale) 0 drop EA EYE PRN PRN PRN Reason: Dry Eyes Aspirin (Ecotrin) 325 mg PO DAILY [facility] Last Admin: 03/09/18 07:59 Dose: 325 mg Atorvastatin Calcium (Lipitor) 40 mg PO HS [facility] Last Admin: 03/08/18 21:45 Dose: 40 mg Beer (Beer) 1 each PO TID-WM [facility] Last Admin: 03/09/18 13:11 Dose: Not Given Bisacodyl (Dulcolax) 10 mg PO Q12H PRN PRN Reason: Constipation Bisacodyl (Dulcolax) 10 mg [place] Q12H PRN PRN Reason: Constipation Dextrose/Water (Dextrose 50%) 25 gm SLOW IVP PRN PRN PRN Reason: PER HYPOGLYCEMIC PROTOCOL Diphenhydramine HCl (Benadryl) 25 mg PO Q6H PRN PRN Reason: Itching & Insomnia or Jamil Laith Famotidine (Pepcid) 20 mg PO Q12HR [facility] Last Admin: 03/09/18 07:58 Dose: 20 mg Glucagon (Glucagon) 1 mg SC PRN PRN PRN Reason: PER HYPOGLYCEMIC PROTOCOL Guaifenesin/Dextromethorphan (Robitussin Dm) 15 ml PO Q4H PRN PRN Reason: Cough Dextrose/Water (D5w) 1,000 mls @ 0 mls/hr IV INF PRN; As Directed PRN Reason: PRN HYPOGLYCEMIC PROTOCOL Insulin Human Regular 100 (units/ Sodium Chloride) 101 mls @ 0 mls/hr IVPB INF EAN; As Directed PRN Reason: Protocol Insulin Glargine (Lantus) 0 units SC ONE PRN PRN Reason: PER OPEN HEART ORDERS Stop: 03/10/18 17:51 Insulin Human Regular (Humulin R) 0 units SC Q4H PRN; Protocol PRN Reason: POST OP SLIDING SCALE Last Admin: 03/09/18 12:45 Dose: 6 unit Mineral Oil (Fleet Mineral Oil) 133 ml [place] DAILYPRN PRN PRN Reason: Constipation Nitroglycerin (Nitrostat) 0.4 mg SL Q5MIN PRN PRN Reason: Chest Pain Ondansetron HCl (Zofran Odt) 4 mg PO Q6H PRN PRN Reason: Nausea/Vomiting Last Admin: 03/08/18 04:33 Dose: 4 mg Sodium Chloride (Flush - Normal Saline) 10 ml IVF Q12HR E[facility] Last Admin: 03/09/18 08:00 Dose: 10 ml Zolpidem Tartrate (Ambien) 5 mg PO HSPRN PRN PRN Reason: Insomnia
[2018-03-09] MEDS: Atorvastatin Calcium 40 MG TAB PO SCH (21:33)
[2018-03-09] MEDS: HYDROcodone/Acetaminophen 5/325 mg Tablet PO PRN (21:42)
[2018-03-10 05:23] LABS: #Eosinphils 0.3 thou/uL (0.0-0.7); #Lymphocytes 2.4 thou/uL (1.20-3.40); #Neutrophils 5.4 thou/uL (1.40-6.50); %Basophils 0.5 % (0.0-1.0); %Eosinophils 2.8 % (0.0-10.0); %Lymphocytes 26.5 % (21.0-51.0); %Monocytes 10.8 % (0.0-10.0); %Neutrophils 59.4 % (42.0-75.0); Hemoglobin 9.1 g/dL (14.0-18.0); Mean Corpuscular HGB CONC 34.2 g/dL (32.0-36.0); Mean Corpuscular Hemoglobin 33.5 pg (27.0-31.0); Mean Corpuscular Volume 97.8 fl (80.0-94.0); Mean Platelet Volume 9.4 fL (7.4-10.4); Platelet Count 148 thou/uL (130-400); RBC Distribution Width 11.3 % (11.5-14.5); Red Blood Cell (RBC) Count 2.71 mill/uL (4.70-6.10)
[2018-03-10 05:39] LABS: Anion Gap 9 mmol/L (10-20); BUN (Urea Nitrogen) 12 mg/dL (8.4-25.7); Calc. Creatinine Clearance 95 mL/min (70-130); Calcium 8.7 mg/dL (7.8-10.44); Carbon Dioxide 24 mmol/L (22-29); Chloride 109 mmol/L (98-107); Estimated GFR-MDRD Greater than 90; Glucose 122 mg/dL (70-105); Potassium 3.4 mmol/L (3.5-5.1); Sodium 139 mmol/L (136-145)
[2018-03-10 08:25] VITALS: TEMP 98.7
[2018-03-10] MEDS: BEER 1 CAN PO SCH ×2 (08:26→13:50)
[2018-03-10] MEDS: Famotidine 20 MG TAB PO SCH (08:27)
[2018-03-10] MEDS: Aspirin 325 mg Enteric Coated Tablet PO SCH (08:28)
[2018-03-10] MEDS ORDERED: Valsartan 80 MG TAB PO SCH ×2 (08:33→09:00)
[2018-03-10] MEDS ORDERED: Metoprolol Tartrate 25 MG TAB PO SCH (09:00)
[2018-03-10 11:33] VITALS: BP 133/85
--- NOTE | 2018-03-10 15:09 | DIS ---
DATE OF ADMISSION: 03/03/2018 DATE OF DISCHARGE: 03/10/2018 PRINCIPAL DIAGNOSES: Coronary artery disease with non-ST elevation myocardial infarction and ischemi c cardiomyopathy. SECONDARY DIAGNOSES: Hypertension and diabetes. PROCEDURES PERFORMED: Cardiac catheterization 03/03/2018, coronary artery bypass grafting x3 with ri ght internal mammary artery to the PDA and reverse greater saphenous vein graft from the aorta to the second diagonal and the first obtuse marginal, 03/06/2018. HISTORY OF PRESENT ILLNESS AND HOSPITAL COURSE: The patient is a 53-year-old diabetic smoker who has been having what he described to heartburn over the last few weeks. He had an episode that was cristopher re enough, he sought medical attention and while in the emergency room, had another episode that was associated with diaphoresis and the development of an ashen color. His troponins were positive and c ardiac catheterization demonstrated markedly decreased LV function, although his inferior wall was es sentially akinetic. He had very significant disease in his distal right coronary system and a diminu tive LAD with essentially no disease suggesting that either his inferior wall with stent or the colla teral distribution such as the septum from the right coronary system accounted for his symptoms. He underwent surgical revascularization using a pedicle right BARBARA to his PDA and vein grafts to his dise ased diagonal and OM. He was extubated the morning after surgery and transferred to the telemetry un it that afternoon. He required little in the way of diuresis. His chest tubes were removed the afte rnoon of postoperative day #1. Henderson removed on postoperative day 2. He is being discharged home to day on postoperative day 4, he will be sent home with a prescription for Vicodin as needed for pain, take an aspirin a day, Lipitor 40 mg at bedtime. He is to resume his metformin and Lopressor 25 mg b.i.d. will be substituted for his Norvasc, MIKI inhibitors will be entertained as his blood pressure tolerates it.
--- NOTE | 2018-03-10 15:34 | PDOC.PN ---
- Subjective Encounter Start Date: 03/10/18 Encounter Start Time: 11:00 Patient iss een today, alert and oriented. , he is planned to be dischagred today., Waiting on Ct surgery to see and dischagre patient. - Objective Resuscitation Status: Resuscitation Status FULL:Full Resuscitation MAR Reviewed: Yes Vital Signs & Weight: Vital Signs (12 hours) Temp Pulse Resp BP Pulse Ox 03/10/18 11:32 66 17 133/85 96 03/10/18 08:20 98.7 F 72 16 136/81 93 L 03/10/18 03:42 98.6 F 72 14 131/77 96 Weight Weight 144 lb Most Recent Monitor Data Heart Rate from ECG 65 NIBP 99/60 NIBP BP-Mean 78 Respiration from ECG 12 SpO2 93 I&O: 03/09/18 03/10/18 03/11/18 06:59 06:59 06:59 Intake Total 1440 720 840 Output Total 1020 420 450 Balance 420 300 390 Result Diagrams: 03/10/18 04:19 03/10/18 04:19 Additional Labs: Accuchecks 03/10/18 03/10/18 03/09/18 08:42 03:49 23:56 POC Glucose 219 H 143 H 160 H 03/09/18 03/09/18 20:07 15:59 POC Glucose 185 H 243 H Radiology Reviewed by me: Yes Phys Exam - Physical Examination HEENT: PERRLA, moist MMs Neck: no nodes, no JVD Respiratory: no wheezing, no rales Cardiovascular: RRR, no significant murmur Gastrointestinal: soft, non-tender Musculoskeletal: no edema, pulses present Neurological: non-focal, normal sensation Dx/Plan (1) S/P CABG (coronary artery bypass graft) Code(s): Z95.1 - PRESENCE OF AORTOCORONARY BYPASS GRAFT Status: Acute Comment: CT surgery following, pt off of Chest tubes, Has chest tube site bleeding as the sutures came off and plaster on it all came off. Asked nurse to apply steri strips for now and call Dr. King (2) NSTEMI (non-ST elevated myocardial infarction) Code(s): I21.4 - NON-ST ELEVATION (NSTEMI) MYOCARDIAL INFARCTION Status: Acute Comment: Stbale, no chest pain, pt on Aspirin/ BB/ Statin. (3) Alcohol abuse Code(s): F10.10 - ALCOHOL ABUSE, UNCOMPLICATED Status: Chronic Comment: contoinue on Thiamine/ Folic acid, no withdrawls/. (4) DM type 2 (diabetes mellitus, type 2) Status: Chronic Qualifiers: Diabetes mellitus wrapper stemmer hand insulin use: without wrapper stemmer hand use Diabetes mellitus complication status: with unspecified complications Qualified Code(s) : E11.8 - Type 2 diabetes mellitus with unspecified complications Comment: Hold Metformin till dischagre, continue with SSI to keep BG 140-180 (5) Dyslipidemia Code(s): E78.5 - HYPERLIPIDEMIA, UNSPECIFIED Status: Chronic Comment: Will kristaley monitor. (6) Tobacco abuse Code(s): Z72.0 - TOBACCO USE Status: Chronic (7) Hyperlipemia Code(s): E78.5 - HYPERLIPIDEMIA, UNSPECIFIED Status: Acute Comment: statin on Board. 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 Review of Systems - Review of Systems Eyes: negative: Pain, Vision Change, Conjunctivae Inflammation, Eyelid Inflammation, Redness, Other Respiratory: negative: Cough, Dry, Shortness of Breath, Hemoptysis, SOB with Excertion, Pleuritic Pain, Sputum, Wheezing Cardiovascular: negative: chest pain, palpitations, orthopnea, paroxysmal nocturnal dyspnea, edema, light headedness, other Gastrointestinal: negative: Nausea, Vomiting, Abdominal Pain, Diarrhea, Constipation, Melena, Hematochezia, Other Musculoskeletal: negative: Neck Pain, Shoulder Pain, Arm Pain, Back Pain, Hand Pain, Leg Pain, Foot Pain, Other Neurological: negative: Weakness, Numbness, Incoordination, Change in Speech, Confusion, Seizures, Other - Medications/Allergies Allergies/Adverse Reactions: Allergies Allergy/AdvReac Type Severity Reaction Status Date / Time No Known Drug Allergies Allergy Verified 03/03/18 15:22
--- NOTE | 2018-03-11 15:05 | EKG ---
Test Reason : CP Blood Pressure : / mmHG Vent. Rate : 072 BPM Atrial Rate : 072 BPM P-R Int : 152 ms QRS Dur : 090 ms QT Int : 390 ms P-R-T Axes : 018 -07 -51 degrees QTc Int : 427 ms Normal sinus rhythm Inferior infarct , age undetermined Abnormal ECG Acute changes from 2014 Confirmed by IRAIDA MCNEIL, SHADI ([id number]), technical writer and editor MARCEL MARCUS ([id number]) on 03/11/2018 3:04:45 PM Referred By: MARK Confirmed By:SHADI KHOURY MD
== END 2018-03-10 13:25 | disposition home or self-care (01) | DRG 234 ==
LOC: ERS 09:41 → 2NO 14:53 → CCU 03-04 09:29 → 2NO 03-05 17:30 → CCU 03-06 14:16 → 2NO 03-08 11:13
PROVIDERS: ADMIT Internal Medicine; ATTEND Internal Medicine
PROC: 4A023N7 Measurement of Cardiac Sampling and Pressure, Left Heart, Percutaneous Approach (ICD-10-PCS; 2018-03-04)
PROC: B2111ZZ Fluoroscopy of Multiple Coronary Arteries using Low Osmolar Contrast (ICD-10-PCS; 2018-03-04)
PROC: 02100Z8 Bypass Coronary Artery, One Artery from Right Internal Mammary, Open Approach (ICD-10-PCS; principal; 2018-03-06)
PROC: 021109W Bypass Coronary Artery, Two Arteries from Aorta with Autologous Venous Tissue, Open Approach (ICD-10-PCS; 2018-03-06)
PROC: 06BP4ZZ Excision of Right Saphenous Vein, Percutaneous Endoscopic Approach (ICD-10-PCS; 2018-03-06)
PROC: 03B00ZZ Excision of Right Internal Mammary Artery, Open Approach (ICD-10-PCS; 2018-03-06)
PROC: 5A1221Z Performance of Cardiac Output, Continuous (ICD-10-PCS; 2018-03-06)
PROC: B24BZZ4 Ultrasonography of Heart with Aorta, Transesophageal (ICD-10-PCS; 2018-03-06)
DX: I21.4 Non-ST elevation (NSTEMI) myocardial infarction (principal); I25.10 Atherosclerotic heart disease of native coronary artery without angina pectoris; E11.9 Type 2 diabetes mellitus without complications; E78.5 Hyperlipidemia, unspecified; Z79.84 Long term (current) use of oral hypoglycemic drugs; F10.10 Alcohol abuse, uncomplicated; F17.210 Nicotine dependence, cigarettes, uncomplicated; I25.5 Ischemic cardiomyopathy
CPT/HCPCS: 36415; 36416; 36430; 71045; 76942; 80048; 80053; 80061; 82553; 82805; 83036; 83880; 84484; 85025; 85610; 85730; 86850; 86900; 86901; 93005; 93010; 93306; 93458; 93567; 93798; 94002; 94003; 94150; 96361; 96372; 96374; 99152; 99153; A4216; C1769; J1265; J1642; J1644; J1650; J1815; J1885; J1940; J2001; J2150; J2250; J2270; J2370; J2405; J2440; J2720; J3010; J3480; J7050; P9016; P9045; Q0162; S0017; S0028

== ENCOUNTER 2018-03-16 19:00 | Emergency (ER) | payer SELFPAY ==
[2018-03-16] MEDS ORDERED: Ondansetron ODT 4 MG TAB ONE (19:27)
[2018-03-16 19:36] LABS: #Basophils 0.1 thou/uL (0.0-0.2); #Eosinphils 0.3 thou/uL (0.0-0.7); #Lymphocytes 2.5 thou/uL (1.20-3.40); #Monocytes 1.1 thou/uL (0.11-0.59); #Neutrophils 9.2 thou/uL (1.40-6.50); %Basophils 0.9 % (0.0-1.0); %Lymphocytes 19.2 % (21.0-51.0); %Monocytes 8.5 % (0.0-10.0); %Neutrophils 69.4 % (42.0-75.0); Hemoglobin 12.2 g/dL (14.0-18.0); Mean Corpuscular HGB CONC 35.2 g/dL (32.0-36.0); Mean Corpuscular Hemoglobin 34.1 pg (27.0-31.0); Mean Corpuscular Volume 96.9 fl (80.0-94.0); Mean Platelet Volume 6.8 fL (7.4-10.4); Platelet Count 601 thou/uL (130-400); RBC Distribution Width 11.4 % (11.5-14.5); Red Blood Cell (RBC) Count 3.58 mill/uL (4.70-6.10); White Blood Cell (WBC) Count 13.2 thou/uL (4.8-10.8)
[2018-03-16 19:54] LABS: ALT (SGPT) 31 U/L (8-55); AST (SGOT) 16 U/L (5-34); Alkaline Phosphatase 129 U/L (40-150); Anion Gap 17 mmol/L (10-20); BUN (Urea Nitrogen) 17 mg/dL (8.4-25.7); Bilirubin, Total 0.4 mg/dL (0.2-1.2); CK (CPK) 21 U/L (30-200); Calc. Creatinine Clearance 0 mL/min (70-130); Calcium 9.9 mg/dL (7.8-10.44); Carbon Dioxide 22 mmol/L (22-29); Chloride 102 mmol/L (98-107); Estimated GFR-MDRD 67; Globulin 3.4 g/dL (2.4-3.5); Glucose 181 mg/dL (70-105); Potassium 4.4 mmol/L (3.5-5.1); Protein, Total 7.4 g/dL (6.0-8.3); Sodium 137 mmol/L (136-145)
[2018-03-16 19:58] LABS: CKMB 0.3 ng/mL (0-6.6); Troponin I 0.042 ng/mL (< 0.028)
--- NOTE | 2018-03-16 20:06 | RAD ---
PORTABLE CHEST: 03/16/2018 PROVIDED CLINICAL HISTORY: Vomiting and diarrhea. COMPARISON: 03/09/2018 FINDINGS: The cardiac and mediastinal silhouette is within normal limits. Median sternotomy changes are seen. No focal consolidation, pleural fluid, or pneumothorax is apparent. IMPRESSION: No evidence for an acute cardiopulmonary process. POS: [facility]
== END 2018-03-16 21:45 | disposition home or self-care (01) ==
LOC: ERS 19:00
DX: R19.7 Diarrhea, unspecified (principal); R11.10 Vomiting, unspecified
CPT/HCPCS: 71045; 80053; 82553; 84484; 85025; 93005; 96360; Q0162

== ENCOUNTER 2018-04-25 13:17 | Emergency (ER) | payer SELFPAY ==
[2018-04-25] MEDS ORDERED: Insulin Regular 300 UNITS/3 ML VIAL ONE (14:17)
[2018-04-25 14:42] LABS: #Basophils 0.1 thou/uL (0.0-0.2); #Eosinphils 0.2 thou/uL (0.0-0.7); #Lymphocytes 1.4 thou/uL (1.20-3.40); #Monocytes 0.4 thou/uL (0.11-0.59); #Neutrophils 3.3 thou/uL (1.40-6.50); %Eosinophils 2.8 % (0.0-10.0); %Lymphocytes 26.6 % (21.0-51.0); %Monocytes 7.3 % (0.0-10.0); %Neutrophils 62.4 % (42.0-75.0); Hemoglobin 13.2 g/dL (14.0-18.0); Mean Corpuscular HGB CONC 32.7 g/dL (32.0-36.0); Mean Corpuscular Hemoglobin 31.4 pg (27.0-31.0); Mean Platelet Volume 8.1 fL (7.4-10.4); Platelet Count 226 thou/uL (130-400); RBC Distribution Width 12.7 % (11.5-14.5); Red Blood Cell (RBC) Count 4.19 mill/uL (4.70-6.10); White Blood Cell (WBC) Count 5.4 thou/uL (4.8-10.8)
[2018-04-25] MEDS ORDERED: Lidocaine 1% PF 5 ML VIAL ONE (14:57)
[2018-04-25] MEDS ORDERED: Lidocaine 1% w/Epinephrine 1:100K 20 ML VIAL ONE (14:58)
[2018-04-25 15:00] LABS: Anion Gap 17 mmol/L (10-20); BUN (Urea Nitrogen) 11 mg/dL (8.4-25.7); Calc. Creatinine Clearance 0 mL/min (70-130); Carbon Dioxide 19 mmol/L (22-29); Chloride 101 mmol/L (98-107); Estimated GFR-MDRD 51; Glucose 366 mg/dL (70-105); Potassium 5.8 mmol/L (3.5-5.1); Sodium 131 mmol/L (136-145)
[2018-04-25] MEDS ORDERED: Sulfameth/Trimethoprim DS 800-160mg TAB ONE (15:11)
== END 2018-04-25 16:14 | disposition home or self-care (01) ==
LOC: ERS 13:17
DX: L02.415 Cutaneous abscess of right lower limb (principal); E11.65 Type 2 diabetes mellitus with hyperglycemia; L03.115 Cellulitis of right lower limb; E78.5 Hyperlipidemia, unspecified; I10 Essential (primary) hypertension; Z87.891 Personal history of nicotine dependence; Z79.899 Other long term (current) drug therapy; Z79.82 Long term (current) use of aspirin; Z79.84 Long term (current) use of oral hypoglycemic drugs
CPT/HCPCS: 10060; 36416; 80048; 85025; 96361; 96374; J1815; J2001

== ENCOUNTER 2018-05-20 18:23 | Emergency (ER) | payer SELFPAY ==
--- NOTE | 2018-05-20 19:30 | CT ---
CT OF BRAIN PERFORMED WITHOUT CONTRAST ENHANCEMENT: 05/20/18 HISTORY: Head injury. COMPARISON: 02/18/15 study. There is generalized ventricular and sulcal prominence. There is decreased attenuation in the periven tricular white matter consistent with chronic ischemic white matter change. There is no signs of intr acerebral hemorrhage or extra-axial fluid collections. There is a frontal scalp hematoma noted on the right. No underlying fracture. The mastoid air cells and visualized sinuses are clear. IMPRESSION: No acute intracranial abnormalities. POS: [facility]
--- NOTE | 2018-05-20 19:32 | CT ---
CT OF CERVICAL SPINE PERFORMED WITHOUT CONTRAST ENHANCEMENT: 05/20/18 HISTORY: Neck injury. The vertebral bodies are normal in height. Disc spaces all appear fairly well preserved. The facets a re in normal alignment. There is no evidence for canal or foraminal stenosis. There is no CT evidence of fracture. Lung apices are clear. Small left lobe thyroid nodule is incidentally noted. This could be assessed o n ultrasound on a nonemergent basis. IMPRESSION: No CT evidence of fracture or the cervical spine. POS: [facility]
[2018-05-20] MEDS ORDERED: Adacel (T-DAP) 0.5 ML VIAL ONE (19:52)
== END 2018-05-20 21:10 ==
LOC: ERS 18:23
DX: S01.01XA Laceration without foreign body of scalp, initial encounter (principal); E11.9 Type 2 diabetes mellitus without complications; E78.5 Hyperlipidemia, unspecified; I10 Essential (primary) hypertension; Z87.891 Personal history of nicotine dependence; W22.8XXA Striking against or struck by other objects, initial encounter
CPT/HCPCS: 12002; 70450; 72125; 90471; 90715

== ENCOUNTER 2018-06-06 14:33 | Emergency (ER) | payer SELFPAY ==
[2018-06-06 15:22] LABS: #Basophils 0.1 thou/uL (0.0-0.2); #Eosinphils 0.1 thou/uL (0.0-0.7); #Lymphocytes 1.8 thou/uL (1.20-3.40); #Monocytes 0.8 thou/uL (0.11-0.59); #Neutrophils 6.3 thou/uL (1.40-6.50); %Eosinophils 1.4 % (0.0-10.0); %Lymphocytes 19.8 % (21.0-51.0); %Monocytes 9.2 % (0.0-10.0); %Neutrophils 68.6 % (42.0-75.0); Hemoglobin 14.8 g/dL (14.0-18.0); Mean Corpuscular HGB CONC 34.2 g/dL (32.0-36.0); Mean Corpuscular Hemoglobin 32.6 pg (27.0-31.0); Mean Corpuscular Volume 95.1 fL (78.0-98.0); Mean Platelet Volume 8.1 fL (7.4-10.4); Platelet Count 238 thou/uL (130-400); RBC Distribution Width 13.6 % (11.5-14.5); Red Blood Cell (RBC) Count 4.55 mill/uL (4.70-6.10); White Blood Cell (WBC) Count 9.1 thou/uL (4.8-10.8)
[2018-06-06 15:29] LABS: PTT 26.3 SEC (22.9-36.1)
[2018-06-06 15:48] LABS: ALT (SGPT) 16 U/L (8-55); AST (SGOT) 12 U/L (5-34); Albumin 4.8 g/dL (3.5-5.0); Alkaline Phosphatase 101 U/L (40-150); Anion Gap 15 mmol/L (10-20); BUN (Urea Nitrogen) 14 mg/dL (8.4-25.7); Bilirubin, Total 0.5 mg/dL (0.2-1.2); Calc. Creatinine Clearance 0 mL/min (70-130); Carbon Dioxide 25 mmol/L (22-29); Chloride 102 mmol/L (98-107); Estimated GFR-MDRD 55; Globulin 3.3 g/dL (2.4-3.5); Glucose 344 mg/dL (70-105); Potassium 4.6 mmol/L (3.5-5.1); Protein, Total 8.1 g/dL (6.0-8.3); Sodium 137 mmol/L (136-145)
--- NOTE | 2018-06-06 16:42 | ULT ---
ULTRASOUND WITH DOPPLER DUPLEX VENOUS LOWER EXTREMITY RIGHT: 06/06/18 HISTORY: 53-year-old male with right lower extremity edema and pain. TECHNIQUE: Color flow Doppler, spectral waveform analysis of pulsed Doppler, and abbott-scale imaging with aylin rony and augmentation, were used to evaluate the right common femoral, femoral, popliteal, posterior tibial, and superficial femoral, veins; and the proximal portions of the profunda femoral and greater saphenous, veins. FINDINGS: There is normal compressibility, demonstration of blood flow by color Doppler and pulsed Doppler, and response to augmentation, in all interrogated veins. IMPRESSION: Negative. No deep vein thrombosis in the right lower extremity. jn [] POS: [facility]
== END 2018-06-06 16:54 | disposition home or self-care (01) ==
LOC: ERS 14:33
DX: L03.115 Cellulitis of right lower limb (principal); E78.5 Hyperlipidemia, unspecified; I10 Essential (primary) hypertension; E11.9 Type 2 diabetes mellitus without complications; Z87.891 Personal history of nicotine dependence; Z79.82 Long term (current) use of aspirin; Z79.899 Other long term (current) drug therapy
CPT/HCPCS: 36415; 80053; 84550; 85025; 85610; 85730

== ENCOUNTER 2018-08-18 23:58 | Emergency (ER) | payer SELFPAY ==
[2018-08-19 00:24] LABS: #Basophils 0.2 thou/uL (0.0-0.2); #Eosinphils 0.1 thou/uL (0.0-0.7); #Lymphocytes 3.6 thou/uL (1.20-3.40); #Monocytes 0.7 thou/uL (0.11-0.59); %Basophils 1.9 % (0.0-1.0); %Eosinophils 1.1 % (0.0-10.0); %Lymphocytes 37.7 % (21.0-51.0); %Monocytes 7.2 % (0.0-10.0); %Neutrophils 52.2 % (42.0-75.0); Hemoglobin 16.8 g/dL (14.0-18.0); Mean Corpuscular HGB CONC 34.9 g/dL (32.0-36.0); Mean Corpuscular Hemoglobin 32.5 pg (27.0-31.0); Mean Corpuscular Volume 93.3 fL (78.0-98.0); Mean Platelet Volume 7.9 fL (7.4-10.4); Platelet Count 248 thou/uL (130-400); RBC Distribution Width 12.7 % (11.5-14.5); Red Blood Cell (RBC) Count 5.17 mill/uL (4.70-6.10); White Blood Cell (WBC) Count 9.6 thou/uL (4.8-10.8)
[2018-08-19 00:45] LABS: ALT (SGPT) 26 U/L (8-55); AST (SGOT) 20 U/L (5-34); Albumin 5.2 g/dL (3.5-5.0); Alkaline Phosphatase 108 U/L (40-150); Anion Gap 18 mmol/L (10-20); BUN (Urea Nitrogen) 7 mg/dL (8.4-25.7); Bilirubin, Total 0.4 mg/dL (0.2-1.2); CK (CPK) 59 U/L (30-200); Calc. Creatinine Clearance 0 mL/min (70-130); Calcium 10.1 mg/dL (7.8-10.44); Carbon Dioxide 23 mmol/L (22-29); Chloride 97 mmol/L (98-107); Estimated GFR-MDRD 72; Globulin 3.9 g/dL (2.4-3.5); Glucose 247 mg/dL (70-105); Lipase 69 U/L (8-78); Potassium 4.3 mmol/L (3.5-5.1); Protein, Total 9.1 g/dL (6.0-8.3); Sodium 134 mmol/L (136-145)
[2018-08-19 00:47] LABS: CKMB 1.2 ng/mL (0-6.6); Troponin I Less than 0.010 ng/mL (< 0.028)
[2018-08-19 04:05] LABS: Troponin I Less than 0.010 ng/mL (< 0.028)
--- NOTE | 2018-08-19 07:47 | RAD ---
PORTABLE CHEST: Date: 08/19/18 HISTORY: Chest pain. FINDINGS: Lung ellison are clear. No infiltrate. Heart and mediastinum unremarkable. No evidence of vascular con gestion. Postoperative clips seen overlying the right hilum. Postop sternotomy change. IMPRESSION: No acute process. POS: [facility]
--- NOTE | 2018-08-19 09:16 | ULT ---
PRELIMINARY REPORT/[facility]/EMERGENTY AFTER-HOURS PROCEDURE US Abdomen Limited, Right Upper Quadrant EXAM DATE/TIME: 08/19/2018 1:01 AM CLINICAL HISTORY: 53 years old, male; Pain; Other: Ruq pain, +etoh TECHNIQUE: Real-time ultrasound of the abdomen with image documentation. Examination was focused on the right up per quadrant. COMPARISON: No relevant prior studies available. FINDINGS: Liver: Liver is heterogeneous in echotexture, without focal hepatic lesions. Findings may be secondar y to hepatocellular disease. Gallbladder: Gallbladder wall measures 3 mm in thickness. Sonographic Fairchild sign was reportedly nega tive. Common bile duct: Common bile duct measures 3 mm in diameter. Pancreas: Pancreas not well-visualized secondary to overlying bowel gas. Right kidney: Right kidney is normal in appearance and measures 10.9 cm in length. IMPRESSION: No sonographic evidence of acute right upper abdominal abnormality. Thank you for allowing us to participate in the care of your patient. Dictated and Authenticated by: Bryon Jules MD 08/19/2018 2:24 AM Central Time ([place] & [place]) FINAL REPORT EMERGENT AFTER HOURS RIGHT UPPER QUADRANT ULTRASOUND: IMPRESSION: I agree with the preliminary interpretation given by [facility]. There is no evidence for an acute process. A coarsened and echogenic appearance of the hepatic parenchyma diffusely likely reflects infiltration . POS: [facility]
== END 2018-08-19 04:35 | disposition home or self-care (01) ==
LOC: ERS 23:58
DX: R07.89 Other chest pain (principal); E11.9 Type 2 diabetes mellitus without complications; E78.5 Hyperlipidemia, unspecified; I10 Essential (primary) hypertension; Z87.891 Personal history of nicotine dependence
CPT/HCPCS: 71045; 76705; 80053; 82553; 83690; 83880; 84484; 85025; 93005

== ENCOUNTER 2020-03-30 21:39 | Emergency (ER) | payer BC, OTHER ==
--- NOTE | 2020-03-31 09:22 | RAD ---
FRONTAL RADIOGRAPH CHEST: DATE: 03/30/2020. COMPARISON: 08/19/2018. HISTORY: Cough. FINDINGS: Stable midline sternotomy wires. Heart and mediastinal contours are stable. No pneumothorax, pleura l fluid, focal consolidation, or alveolar edema. IMPRESSION: No acute findings. POS: [facility]
== END 2020-03-31 00:09 | disposition home or self-care (01) ==
LOC: ERS 21:39
DX: R05 Cough (principal); R50.9 Fever, unspecified; Z20.828 Contact with and (suspected) exposure to other viral communicable diseases; E11.9 Type 2 diabetes mellitus without complications; E78.5 Hyperlipidemia, unspecified; I10 Essential (primary) hypertension; F41.9 Anxiety disorder, unspecified; F32.9 Major depressive disorder, single episode, unspecified; Z87.891 Personal history of nicotine dependence
CPT/HCPCS: 71045

== ENCOUNTER 2020-05-12 17:09 | Emergency (ER) | payer BC, OTHER | END 2020-05-12 17:54 | disposition home or self-care (01) | LOC: ERS 17:09 | DX: I10 Essential (primary) hypertension (principal); E11.9 Type 2 diabetes mellitus without complications; E78.5 Hyperlipidemia, unspecified; F32.9 Major depressive disorder, single episode, unspecified; F41.9 Anxiety disorder, unspecified; Z87.891 Personal history of nicotine dependence | CPT/HCPCS: 99281 ==

== ENCOUNTER 2021-02-17 | Emergency (ER) | payer BC, SELFPAY ==
[2021-02-17 00:47] LABS: #Basophils 0.1 thou/uL (0.0-0.2); #Eosinphils 0.1 thou/uL (0.0-0.7); #Lymphocytes 2.6 thou/uL (1.20-3.40); #Monocytes 0.7 thou/uL (0.11-0.59); #Neutrophils 4.4 thou/uL (1.40-6.50); %Basophils 1.5 % (0.0-1.0); %Eosinophils 1.4 % (0.0-10.0); %Lymphocytes 32.5 % (21.0-51.0); %Monocytes 8.9 % (0.0-10.0); %Neutrophils 55.7 % (42.0-75.0); Hemoglobin 14.4 g/dL (14.0-18.0); Mean Corpuscular HGB CONC 35.8 g/dL (32.0-36.0); Mean Corpuscular Hemoglobin 35.4 pg (27.0-31.0); Mean Corpuscular Volume 98.9 fL (78.0-98.0); Mean Platelet Volume 8.3 fL (7.4-10.4); Platelet Count 197 thou/uL (130-400); RBC Distribution Width 11.9 % (11.5-14.5); Red Blood Cell (RBC) Count 4.08 mill/uL (4.70-6.10); White Blood Cell (WBC) Count 7.9 thou/uL (4.8-10.8)
[2021-02-17 01:00] LABS: ALT (SGPT) 13 U/L (8-55); AST (SGOT) 14 U/L (5-34); Albumin 3.8 g/dL (3.5-5.0); Alcohol 232 mg/dL (Less than 10); Alkaline Phosphatase 85 U/L (40-110); Anion Gap 16 mmol/L (10-20); BUN (Urea Nitrogen) 8 mg/dL (8.4-25.7); Bilirubin, Total 0.2 mg/dL (0.2-1.2); Calc. Creatinine Clearance 0 mL/min (70-130); Carbon Dioxide 23 mmol/L (22-29); Chloride 103 mmol/L (98-107); Globulin 2.8 g/dL (2.4-3.5); Glucose 357 mg/dL (70-105); Potassium 3.7 mmol/L (3.5-5.1); Protein, Total 6.6 g/dL (6.0-8.3); Sodium 138 mmol/L (136-145)
== END 2021-02-17 02:22 | disposition home or self-care (01) ==
LOC: ERS
DX: F10.129 Alcohol abuse with intoxication, unspecified (principal); R20.2 Paresthesia of skin; R06.00 Dyspnea, unspecified; E11.9 Type 2 diabetes mellitus without complications; E78.5 Hyperlipidemia, unspecified; I10 Essential (primary) hypertension; Z87.891 Personal history of nicotine dependence; R29.700 NIHSS score 0
CPT/HCPCS: 36415; 71045; 80053; 80307; 83880; 84484; 85025; 93005

== ENCOUNTER 2022-06-25 16:32 | Emergency (ER) | payer OTHER | END 2022-06-25 17:43 | disposition home or self-care (01) | LOC: ERS 16:32 | DX: U07.1 COVID-19 (principal); I10 Essential (primary) hypertension; E11.9 Type 2 diabetes mellitus without complications; E78.5 Hyperlipidemia, unspecified; Z79.84 Long term (current) use of oral hypoglycemic drugs; Z79.899 Other long term (current) drug therapy; Z87.891 Personal history of nicotine dependence | CPT/HCPCS: 99283; U0003; U0005 ==

== ENCOUNTER 2023-05-21 11:09 | Inpatient (IN) | payer MEDICARE, MEDICAID ==
[~2023-05-21 11:09] MED LIST: Lorazepam 1 MG TAB PO PRN
[2023-05-21] MEDS ORDERED: Iopamidol-370 76% 500 ML MDV (1 ML CHARGE) ONE (11:48)
[2023-05-21 11:55] LABS: #Basophils 0.1 thou/uL (0.0-0.2); #Monocytes 1.4 thou/uL (0.11-0.59); #Neutrophils 12.6 thou/uL (1.40-6.50); %Basophils 0.3 % (0.0-1.0); %Eosinophils 0.1 % (0.0-10.0); %Lymphocytes 6.6 % (21.0-51.0); %Neutrophils 83.6 % (42.0-75.0); Hemoglobin 13.5 g/dL (14.0-18.0); Mean Corpuscular HGB CONC 37.4 g/dL (32.0-36.0); Mean Corpuscular Hemoglobin 33.4 pg (27.0-31.0); Mean Corpuscular Volume 89.4 fl (78.0-98.0); Platelet Count 308 10x3/uL (130-400); RBC Distribution Width 11.8 % (11.5-14.5); Red Blood Cell (RBC) Count 4.04 mill/uL (4.70-6.10); White Blood Cell (WBC) Count 15.1 10x3/uL (4.8-10.8)
[2023-05-21 12:09] LABS: Bacteria/HPF None Seen HPF (None Seen); Bilirubin Negative (Negative); Blood, Urine Negative (Negative); CAUTI Indications for Culture Alt mental st,lethar; Clarity Clear (Clear); Glucose, Urine (Dipstick) Greater than 1000 mg/dL (Negative); Ketone, Urine Negative (Negative); Leukocyte Negative Leu/uL (Negative); Nitrite Negative (Negative); Protein, Urine (Dipstick) 20 mg/dL (Neg-Trace); RBC/HPF 0-3 HPF (0-3); Specific Gravity, Urine 1.011 (1.002-1.036); Squamous Epithelial None Seen HPF (0-3); Urobilinogen Normal mg/dL (Less than 2); WBC/HPF 0-3 HPF (0-3); pH, Urine 7.5 (5.0-9.0)
[2023-05-21 12:12] LABS: Urine Culture Reflex No No
[2023-05-21 12:17] LABS: Amphetamine Not Detected (NotDetected); Barbiturates Screen Not Detected (NotDetected); Benzodiazepine Screen Not Detected (NotDetected); Cocaine Metabolite Screen Not Detected (NotDetected); Methadone Not Detected (NotDetected); Methamphetamine Not Detected (NotDetected); Opiate Screen Not Detected (NotDetected); Oxycodone Screen Not Detected (NotDetected); Phencyclidine (PCP) Not Detected (NotDetected); THC/Cannabinoid Screen Not Detected (NotDetected); Tricyclic Screen Not Detected (NotDetected)
[2023-05-21 12:17] LABS: Acetaminophen Less than 10 mcg/mL (10.0-30.0); Alcohol Less than 10.0 mg/dL (Less than 10); Salicylate Less than 8.0 mg/dL (15.0-30.0)
[2023-05-21] MEDS ORDERED: Cefepime 2 GM VIAL ONE (12:26)
[2023-05-21 12:58] LABS: ALT (SGPT) 19 U/L (8-55); AST (SGOT) 18 U/L (5-34); Albumin 4.6 g/dL (3.5-5.0); Alkaline Phosphatase 60 U/L (40-110); Anion Gap 15 mmol/L (10-20); BUN (Urea Nitrogen) 11 mg/dL (8.4-25.7); Bilirubin, Total 0.4 mg/dL (0.2-1.2); Calc. Creatinine Clearance 0 mL/min (70-130); Calcium 9.5 mg/dL (7.8-10.44); Carbon Dioxide 24 mmol/L (22-29); Chloride 84 mmol/L (98-107); Estimated GFR 98; Globulin 2.8 g/dL (2.4-3.5); Glucose 157 mg/dL (70-105); Lipase 25 U/L (8-78); Potassium 4.3 mmol/L (3.5-5.1); Protein, Total 7.4 g/dL (6.0-8.3)
[2023-05-21 13:05] LABS: Sodium 119 mmol/L (136-145)
[2023-05-21] MEDS ORDERED: Sodium Chloride 3% 100 ML in Admixture Fee 1 EACH IVPB SCH ×2 (14:45→19:00)
[2023-05-21] MEDS ORDERED: Lorazepam 2 MG/ML VIAL IM PRN ×2 (15:19→23:00)
[2023-05-21] MEDS ORDERED: Lorazepam 1 MG TAB PO PRN (15:19)
[2023-05-21] MEDS ORDERED: Ondansetron PF 4 MG/2 ML Vial IVP PRN (15:19)
[2023-05-21] MEDS ORDERED: Ondansetron ODT 4 MG TAB PO PRN (15:19)
[2023-05-21] MEDS ORDERED: Electrolyte Replacement Protocol FS SCH (15:30)
[2023-05-21] MEDS ORDERED: Thiamine HCl 200 MG/2 ML VIAL SLOW IVP SCH (15:30)
[2023-05-21] MEDS ORDERED: Pantoprazole 40 MG VIAL ONE (15:47)
[2023-05-21 16:05] LABS: Magnesium 1.1 mg/dL (1.6-2.6)
[2023-05-21 16:47] VITALS: BMI 25.0
[2023-05-21] MEDS ORDERED: Magnesium Sulfate In Water 4 GM in Premix Bag 1 BAG IVPB SCH (17:45)
[2023-05-21] MEDS ORDERED: Lorazepam 1 MG TAB ONE (18:02)
[2023-05-21] MEDS: Lorazepam 1 MG TAB PO SCH ×3 (18:07→23:50)
[2023-05-21] MEDS ORDERED: Magnesium 2 GM/50 ML BAG (IN WATER) ONE (18:08)
[2023-05-21 18:54] LABS: Anion Gap 13 mmol/L (10-20); BUN (Urea Nitrogen) 8 mg/dL (8.4-25.7); Calc. Creatinine Clearance 90 mL/min (70-130); Calcium 9.4 mg/dL (7.8-10.44); Carbon Dioxide 21 mmol/L (22-29); Chloride 96 mmol/L (98-107); Estimated GFR 100; Glucose 129 mg/dL (70-105); Potassium 3.9 mmol/L (3.5-5.1); Sodium 126 mmol/L (136-145)
[2023-05-21] MEDS: Atorvastatin Calcium 40 MG TAB PO SCH (20:13)
[2023-05-21 22:35] LABS: Anion Gap 11 mmol/L (10-20); BUN (Urea Nitrogen) 8 mg/dL (8.4-25.7); Calc. Creatinine Clearance 91 mL/min (70-130); Calcium 9.2 mg/dL (7.8-10.44); Carbon Dioxide 23 mmol/L (22-29); Chloride 97 mmol/L (98-107); Estimated GFR 100; Glucose 163 mg/dL (70-105); Potassium 3.7 mmol/L (3.5-5.1); Sodium 127 mmol/L (136-145)
[2023-05-21] MEDS ORDERED: Lorazepam 1 MG TAB PO SCH (23:00)
[2023-05-22 02:19] LABS: #Monocytes 1.3 thou/uL (0.11-0.59); #Neutrophils 6.4 thou/uL (1.40-6.50); %Basophils 0.3 % (0.0-1.0); %Eosinophils 0.4 % (0.0-10.0); %Lymphocytes 17.2 % (21.0-51.0); %Neutrophils 67.9 % (42.0-75.0); Mean Corpuscular Hemoglobin 33.2 pg (27.0-31.0); Mean Corpuscular Volume 89.6 fl (78.0-98.0); Mean Platelet Volume 9.9 fL (7.4-10.4); Platelet Count 285 10x3/uL (130-400); RBC Distribution Width 12.1 % (11.5-14.5); Red Blood Cell (RBC) Count 4.22 mill/uL (4.70-6.10); White Blood Cell (WBC) Count 9.4 10x3/uL (4.8-10.8)
[2023-05-22 02:46] LABS: Anion Gap 13 mmol/L (10-20); BUN (Urea Nitrogen) 8 mg/dL (8.4-25.7); Calc. Creatinine Clearance 98 mL/min (70-130); Calcium 9.1 mg/dL (7.8-10.44); Carbon Dioxide 22 mmol/L (22-29); Chloride 97 mmol/L (98-107); Estimated GFR 102; Glucose 116 mg/dL (70-105); Potassium 3.6 mmol/L (3.5-5.1); Sodium 128 mmol/L (136-145)
[2023-05-22] MEDS ORDERED: Dextrose 5% in Water 500 ML IV SCH (03:45)
[2023-05-22] MEDS: Lorazepam 1 MG TAB PO SCH ×6 (04:22→19:00)
[2023-05-22 07:43] LABS: Anion Gap 11 mmol/L (10-20); BUN (Urea Nitrogen) 7 mg/dL (8.4-25.7); Calc. Creatinine Clearance 77 mL/min (70-130); Carbon Dioxide 22 mmol/L (22-29); Chloride 96 mmol/L (98-107); Estimated GFR 100; Glucose 175 mg/dL (70-105); Potassium 3.7 mmol/L (3.5-5.1); Sodium 125 mmol/L (136-145)
[2023-05-22] MEDS ORDERED: Lisinopril 20 MG TAB PO SCH (09:00)
[2023-05-22 09:20] LABS: Anion Gap 10 mmol/L (10-20); BUN (Urea Nitrogen) 7 mg/dL (8.4-25.7); Calc. Creatinine Clearance 80 mL/min (70-130); Calcium 8.8 mg/dL (7.8-10.44); Carbon Dioxide 22 mmol/L (22-29); Chloride 96 mmol/L (98-107); Estimated GFR 101; Glucose 191 mg/dL (70-105); Potassium 3.8 mmol/L (3.5-5.1); Sodium 124 mmol/L (136-145)
[2023-05-22] MEDS ORDERED: Sodium Chloride 3% 500 ML IVPB SCH (10:00)
[2023-05-22] MEDS ORDERED: Magnesium 2 GM/50 ML(in water) 2 GM in Premix Bag 1 BAG IVPB SCH (10:00)
[2023-05-22] MEDS: Aspirin 81 mg Enteric Coated Tablet PO SCH (10:09)
[2023-05-22] MEDS: Folic Acid 1 MG TAB PO SCH (10:09)
[2023-05-22] MEDS: Multivit, Therapeutic 1 TAB PO SCH (10:10)
[2023-05-22] MEDS: Pantoprazole 40 MG VIAL IVP SCH (10:11)
[2023-05-22] MEDS: Acetaminophen 325 MG TAB PO PRN (10:17)
[2023-05-22 14:04] LABS: Anion Gap 13 mmol/L (10-20); BUN (Urea Nitrogen) 9 mg/dL (8.4-25.7); Calc. Creatinine Clearance 68 mL/min (70-130); Carbon Dioxide 21 mmol/L (22-29); Chloride 95 mmol/L (98-107); Estimated GFR 90; Glucose 200 mg/dL (70-105); Potassium 4.1 mmol/L (3.5-5.1); Sodium 125 mmol/L (136-145)
[2023-05-22] MEDS ORDERED: Lorazepam 1 MG TAB PO PRN ×2 (15:19→23:00)
[2023-05-22] MEDS: Thiamine HCl 200 MG/2 ML VIAL SLOW IVP SCH (16:51)
[2023-05-22 18:07] LABS: Anion Gap 26 mmol/L (10-20); BUN (Urea Nitrogen) 11 mg/dL (8.4-25.7); Calc. Creatinine Clearance 59 mL/min (70-130); Carbon Dioxide 20 mmol/L (22-29); Chloride 92 mmol/L (98-107); Estimated GFR 77; Glucose 135 mg/dL (70-105); Potassium 4.4 mmol/L (3.5-5.1); Sodium 134 mmol/L (136-145)
[2023-05-22] MEDS ORDERED: Dextrose 5% in Water 1,000 ML IV SCH (18:45)
[2023-05-22] MEDS: Atorvastatin Calcium 40 MG TAB PO SCH (21:07)
[2023-05-22 21:35] LABS: Anion Gap 12 mmol/L (10-20); BUN (Urea Nitrogen) 12 mg/dL (8.4-25.7); Calc. Creatinine Clearance 61 mL/min (70-130); Calcium 8.9 mg/dL (7.8-10.44); Carbon Dioxide 19 mmol/L (22-29); Chloride 99 mmol/L (98-107); Estimated GFR 80; Glucose 182 mg/dL (70-105); Potassium 4.3 mmol/L (3.5-5.1); Sodium 126 mmol/L (136-145)
[2023-05-23] MEDS: Lorazepam 1 MG TAB PO SCH ×2 (02:48)
[2023-05-23 05:10] LABS: Anion Gap 10 mmol/L (10-20); BUN (Urea Nitrogen) 10 mg/dL (8.4-25.7); Calc. Creatinine Clearance 74 mL/min (70-130); Calcium 8.7 mg/dL (7.8-10.44); Carbon Dioxide 21 mmol/L (22-29); Chloride 97 mmol/L (98-107); Estimated GFR 98; Glucose 137 mg/dL (70-105); Potassium 4.1 mmol/L (3.5-5.1); Sodium 124 mmol/L (136-145)
[2023-05-23] MEDS: Lorazepam 0.5 MG TAB PO SCH ×4 (07:10→23:18)
[2023-05-23 08:06] LABS: Anion Gap 12 mmol/L (10-20); BUN (Urea Nitrogen) 9 mg/dL (8.4-25.7); Calc. Creatinine Clearance 74 mL/min (70-130); Calcium 8.8 mg/dL (7.8-10.44); Carbon Dioxide 21 mmol/L (22-29); Chloride 95 mmol/L (98-107); Estimated GFR 98; Glucose 163 mg/dL (70-105); Potassium 4.2 mmol/L (3.5-5.1); Sodium 124 mmol/L (136-145)
[2023-05-23] MEDS: Aspirin 81 mg Enteric Coated Tablet PO SCH (10:03)
[2023-05-23] MEDS: Multivit, Therapeutic 1 TAB PO SCH (10:03)
[2023-05-23] MEDS: Folic Acid 1 MG TAB PO SCH (10:03)
[2023-05-23] MEDS: Pantoprazole 40 MG VIAL IVP SCH (10:04)
[2023-05-23] MEDS: Thiamine HCl 200 MG/2 ML VIAL SLOW IVP SCH (14:50)
[2023-05-23] MEDS ORDERED: hydrALAZINE 20 MG/ML VIAL SLOW IVP PRN (15:01)
[2023-05-23] MEDS ORDERED: Lorazepam 1 MG TAB PO PRN ×2 (15:19→23:00)
[2023-05-23] MEDS ORDERED: hydrALAZINE 25 MG TAB PO SCH (15:30)
[2023-05-23] MEDS ORDERED: Lorazepam 0.5 MG TAB PO SCH (15:30)
[2023-05-23 16:17] LABS: Potassium 4.1 mmol/L (3.5-5.1); Sodium 125 mmol/L (136-145)
[2023-05-23] MEDS: hydrALAZINE 25 MG TAB PO SCH (20:14)
[2023-05-23] MEDS: Acetaminophen 325 MG TAB PO PRN (20:14)
[2023-05-23] MEDS: Atorvastatin Calcium 40 MG TAB PO SCH (20:14)
[2023-05-24 06:53] LABS: Anion Gap 13 mmol/L (10-20); BUN (Urea Nitrogen) 9 mg/dL (8.4-25.7); Calc. Creatinine Clearance 77 mL/min (70-130); Calcium 9.1 mg/dL (7.8-10.44); Carbon Dioxide 20 mmol/L (22-29); Chloride 99 mmol/L (98-107); Estimated GFR 100; Glucose 155 mg/dL (70-105); Sodium 128 mmol/L (136-145)
[2023-05-24] MEDS: Lorazepam 0.5 MG TAB PO PRN ×2 (09:08→15:23)
[2023-05-24] MEDS: Aspirin 81 mg Enteric Coated Tablet PO SCH (09:09)
[2023-05-24] MEDS: Pantoprazole 40 MG VIAL IVP SCH (09:09)
[2023-05-24] MEDS: Folic Acid 1 MG TAB PO SCH (09:09)
[2023-05-24] MEDS: hydrALAZINE 25 MG TAB PO SCH ×3 (09:09→19:37)
[2023-05-24] MEDS: Multivit, Therapeutic 1 TAB PO SCH (09:09)
[2023-05-24] MEDS: Acetaminophen 325 MG TAB PO PRN (09:09)
[2023-05-24] MEDS ORDERED: Lorazepam 0.5 MG TAB PO PRN (15:19)
[2023-05-24] MEDS ORDERED: Thiamine 100 MG TAB PO SCH (15:30)
[2023-05-24] MEDS: Atorvastatin Calcium 40 MG TAB PO SCH (19:37)
[2023-05-25 07:01] LABS: Anion Gap 12 mmol/L (10-20); BUN (Urea Nitrogen) 8 mg/dL (8.4-25.7); Calc. Creatinine Clearance 69 mL/min (70-130); Calcium 9.5 mg/dL (7.8-10.44); Carbon Dioxide 22 mmol/L (22-29); Chloride 101 mmol/L (98-107); Estimated GFR 93; Glucose 190 mg/dL (70-105); Potassium 4.4 mmol/L (3.5-5.1); Sodium 131 mmol/L (136-145)
[2023-05-25 07:40] VITALS: BP 149/98; TEMP 98.3
[2023-05-25] MEDS: hydrALAZINE 25 MG TAB PO SCH (08:04)
[2023-05-25] MEDS: Aspirin 81 mg Enteric Coated Tablet PO SCH (08:04)
[2023-05-25] MEDS: Folic Acid 1 MG TAB PO SCH (08:04)
[2023-05-25] MEDS: Multivit, Therapeutic 1 TAB PO SCH (08:04)
[2023-05-25] MEDS: Pantoprazole 40 MG VIAL IVP SCH (08:04)
[2023-05-25] MEDS: Acetaminophen 325 MG TAB PO PRN (10:17)
== END 2023-05-25 11:58 | disposition home or self-care (01) | DRG 896 ==
LOC: ERS 11:09 → ERHOLD 15:05 → IMCU/EMU 18:56 → T4-A 05-23 16:50
PROVIDERS: ADMIT Internal Medicine; ATTEND Internal Medicine
PROC: HZ2ZZZZ Detoxification Services for Substance Abuse Treatment (ICD-10-PCS; principal; 2023-05-21)
DX: F10.239 Alcohol dependence with withdrawal, unspecified (principal); G93.41 Metabolic encephalopathy; E87.1 Hypo-osmolality and hyponatremia; I50.30 Unspecified diastolic (congestive) heart failure; I11.0 Hypertensive heart disease with heart failure; I25.10 Atherosclerotic heart disease of native coronary artery without angina pectoris; E11.9 Type 2 diabetes mellitus without complications; E83.42 Hypomagnesemia; E78.5 Hyperlipidemia, unspecified; Z71.41 Alcohol abuse counseling and surveillance of alcoholic; Z95.0 Presence of cardiac pacemaker; Z90.49 Acquired absence of other specified parts of digestive tract; Z87.891 Personal history of nicotine dependence; Z86.73 Personal history of transient ischemic attack (TIA), and cerebral infarction without residual deficits; Z82.49 Family history of ischemic heart disease and other diseases of the circulatory system; F10.20 Alcohol dependence, uncomplicated; D63.8 Anemia in other chronic diseases classified elsewhere
CPT/HCPCS: 36415; 36416; 51701; 70496; 70498; 71045; 80048; 80053; 80306; 80307; 81001; 82140; 82533; 83605; 83690; 83735; 83930; 83935; 84100; 84300; 84443; 84484; 85025; 87040; 87086; 93005; 94760; 96365; 96375; C9113; J0692; J1650; J2597; J3411; J3475; J7070; J7131; Q9967

== ENCOUNTER 2023-09-04 21:55 | Observation (INO) | payer MEDICARE, MEDICAID ==
[2023-09-04 22:50] LABS: #Basophils 0.1 thou/uL (0.0-0.2); #Eosinphils 0.3 thou/uL (0.0-0.7); #Monocytes 1.1 thou/uL (0.11-0.59); #Neutrophils 5.3 thou/uL (1.40-6.50); %Basophils 0.6 % (0.0-1.0); %Eosinophils 2.6 % (0.0-10.0); %Lymphocytes 30.6 % (21.0-51.0); %Monocytes 11.1 % (0.0-10.0); %Neutrophils 54.8 % (42.0-75.0); Hematocrit 39.1 % (42.0-52.0); Hemoglobin 13.9 g/dL (14.0-18.0); Mean Corpuscular HGB CONC 35.5 g/dL (32.0-36.0); Mean Corpuscular Hemoglobin 34.1 pg (27.0-31.0); Mean Corpuscular Volume 95.8 fl (78.0-98.0); Mean Platelet Volume 9.8 fL (7.4-10.4); Platelet Count 256 10x3/uL (130-400); RBC Distribution Width 12.3 % (11.5-14.5); Red Blood Cell (RBC) Count 4.08 mill/uL (4.70-6.10); White Blood Cell (WBC) Count 9.7 10x3/uL (4.8-10.8)
[2023-09-04 23:10] LABS: Troponin I Less than 0.010 ng/mL (< 0.028)
[2023-09-04 23:11] LABS: ALT (SGPT) 14 U/L (8-55); AST (SGOT) 20 U/L (5-34); Albumin 4.3 g/dL (3.5-5.0); Alkaline Phosphatase 62 U/L (40-110); Anion Gap 18 mmol/L (10-20); BUN (Urea Nitrogen) 9 mg/dL (8.4-25.7); Bilirubin, Total 0.2 mg/dL (0.2-1.2); Calc. Creatinine Clearance 0 mL/min (70-130); Calcium 8.9 mg/dL (7.8-10.44); Carbon Dioxide 19 mmol/L (22-29); Chloride 100 mmol/L (98-107); Estimated GFR 98; Glucose 128 mg/dL (70-105); Lipase 44 U/L (8-78); Potassium 3.9 mmol/L (3.5-5.1); Protein, Total 7.3 g/dL (6.0-8.3); Sodium 133 mmol/L (136-145)
[2023-09-05] MEDS ORDERED: Ondansetron PF 4 MG/2 ML Vial IVP PRN (00:07)
[2023-09-05] MEDS ORDERED: Glucagon 1 MG/ML KIT IM PRN (00:07)
[2023-09-05] MEDS ORDERED: Acetaminophen 650 MG Suppository PR PRN (00:07)
[2023-09-05] MEDS ORDERED: HumaLOG 300 UNITS/3 ML VIAL SC PRN ×2 (00:07)
[2023-09-05] MEDS ORDERED: Dextrose 5% in Water 1,000 ML IV PRN (00:07)
[2023-09-05] MEDS ORDERED: Dextrose 50% Abboject 50 ML SYRINGE SLOW IVP PRN (00:07)
[2023-09-05] MEDS ORDERED: Ondansetron ODT 4 MG TAB PO PRN (00:07)
[2023-09-05] MEDS ORDERED: Acetaminophen 325 MG TAB PO PRN (00:07)
[2023-09-05 03:15] LABS: #Basophils 0.1 thou/uL (0.0-0.2); #Eosinphils 0.3 thou/uL (0.0-0.7); #Monocytes 0.9 thou/uL (0.11-0.59); #Neutrophils 4.5 thou/uL (1.40-6.50); %Basophils 0.8 % (0.0-1.0); %Eosinophils 3.1 % (0.0-10.0); %Lymphocytes 30.8 % (21.0-51.0); %Monocytes 10.4 % (0.0-10.0); %Neutrophils 54.7 % (42.0-75.0); Hematocrit 38.8 % (42.0-52.0); Hemoglobin 13.7 g/dL (14.0-18.0); Mean Corpuscular HGB CONC 35.3 g/dL (32.0-36.0); Mean Corpuscular Hemoglobin 34.2 pg (27.0-31.0); Mean Corpuscular Volume 96.8 fl (78.0-98.0); Mean Platelet Volume 9.7 fL (7.4-10.4); Platelet Count 257 10x3/uL (130-400); RBC Distribution Width 12.3 % (11.5-14.5); Red Blood Cell (RBC) Count 4.01 mill/uL (4.70-6.10); White Blood Cell (WBC) Count 8.3 10x3/uL (4.8-10.8)
[2023-09-05 03:41] LABS: Anion Gap 15 mmol/L (10-20); BUN (Urea Nitrogen) 8 mg/dL (8.4-25.7); Calc. Creatinine Clearance 78 mL/min (70-130); Calcium 9.6 mg/dL (7.8-10.44); Carbon Dioxide 21 mmol/L (22-29); Chloride 105 mmol/L (98-107); Estimated GFR 100; Glucose 99 mg/dL (70-105); Sodium 137 mmol/L (136-145)
[2023-09-05 03:48] LABS: Troponin I Less than 0.010 ng/mL (< 0.028)
[2023-09-05] MEDS ORDERED: Nitroglycerin 2% Ointment 1 INCH/1 GM Packet ONE ×2 (06:03→14:59)
[2023-09-05] MEDS: Nitroglycerin 2% Ointment 1 INCH/1 GM Packet TOP SCH ×4 (06:08→23:51)
[2023-09-05 06:27] LABS: Troponin I Less than 0.010 ng/mL (< 0.028)
[2023-09-05] MEDS ORDERED: Non-Formulary Item 1 EACH (Lisinopril/Hydrochlorothiazide [Lisinopril-Hctz 20-12.5 Mg Tab PO SCH (09:00)
[2023-09-05] MEDS ORDERED: Atorvastatin Calcium 40 MG TAB ONE (09:37)
[2023-09-05] MEDS: Lisinopril 20 MG TAB PO SCH (09:45)
[2023-09-05] MEDS: Atorvastatin Calcium 40 MG TAB PO SCH (09:45)
[2023-09-05] MEDS: Hydrochlorothiazide 25 MG TAB PO SCH (10:00)
[2023-09-05 12:43] LABS: SARS-CoV-2 NAA Rapid Test Not Detected (NotDetected)
[2023-09-05] MEDS ORDERED: Electrolyte Replacement Protocol 1 EACH FS SCH (14:30)
[2023-09-05] MEDS ORDERED: Aspirin Chewable 81 MG TAB ONE (15:00)
[2023-09-05] MEDS: Aspirin Chewable 81 MG TAB PO SCH (15:10)
[2023-09-05] MEDS ORDERED: Metoprolol Tartrate 25 MG TAB PO SCH (18:15)
[2023-09-05 20:21] VITALS: BMI 19.8
[2023-09-06 06:14] LABS: #Basophils 0.1 thou/uL (0.0-0.2); #Eosinphils 0.2 thou/uL (0.0-0.7); #Monocytes 1.2 thou/uL (0.11-0.59); #Neutrophils 6.3 thou/uL (1.40-6.50); %Basophils 0.7 % (0.0-1.0); %Eosinophils 2.1 % (0.0-10.0); %Lymphocytes 22.5 % (21.0-51.0); %Monocytes 11.9 % (0.0-10.0); %Neutrophils 62.6 % (42.0-75.0); Hematocrit 44.1 % (42.0-52.0); Hemoglobin 15.2 g/dL (14.0-18.0); Mean Corpuscular HGB CONC 34.5 g/dL (32.0-36.0); Mean Corpuscular Hemoglobin 33.8 pg (27.0-31.0); Mean Platelet Volume 10.4 fL (7.4-10.4); Platelet Count 287 10x3/uL (130-400); RBC Distribution Width 12.7 % (11.5-14.5)
[2023-09-06 06:59] LABS: Anion Gap 12 mmol/L (10-20); BUN (Urea Nitrogen) 15 mg/dL (8.4-25.7); Calc. Creatinine Clearance 52 mL/min (70-130); Carbon Dioxide 24 mmol/L (22-29); Chloride 103 mmol/L (98-107); Estimated GFR 65; Glucose 144 mg/dL (70-105); Magnesium 1.9 mg/dL (1.6-2.6); Potassium 4.4 mmol/L (3.5-5.1); Sodium 135 mmol/L (136-145)
[2023-09-06] MEDS ORDERED: Magnesium 2 GM/50 ML(in water) 2 GM in Premix 1 BAG IVPB SCH (08:00)
[2023-09-06] MEDS: Lisinopril 20 MG TAB PO SCH (10:13)
[2023-09-06] MEDS: Atorvastatin Calcium 40 MG TAB PO SCH (10:13)
[2023-09-06] MEDS: Aspirin Chewable 81 MG TAB PO SCH (10:13)
[2023-09-06] MEDS: Hydrochlorothiazide 25 MG TAB PO SCH (10:14)
[2023-09-06] MEDS: Nitroglycerin 2% Ointment 1 INCH/1 GM Packet TOP SCH (14:56)
[2023-09-07 05:30] LABS: Cardiac Risk 2.5 (Less than 4.5)
[2023-09-07] MEDS ORDERED: Regadenoson 0.4 MG/5 ML SYRINGE ONE (10:27)
[2023-09-07] MEDS: Atorvastatin Calcium 40 MG TAB PO SCH (12:43)
[2023-09-07] MEDS: Aspirin Chewable 81 MG TAB PO SCH (12:43)
[2023-09-07] MEDS: Lisinopril 20 MG TAB PO SCH (12:43)
[2023-09-07] MEDS: Hydrochlorothiazide 25 MG TAB PO SCH (12:44)
[2023-09-07 12:48] VITALS: TEMP 97.6
[2023-09-07] MEDS ORDERED: Amlodipine 10 MG TAB PO SCH (16:15)
[2023-09-07 16:49] VITALS: BP 148/101
[2023-09-08] MEDS ORDERED: Amlodipine 10 MG TAB PO SCH (09:00)
== END 2023-09-07 18:15 | disposition home or self-care (01) ==
LOC: ERS 21:55 → ERHOLD 23:31 → 2NO 09-05 19:22
PROVIDERS: ADMIT Student in an Organized Health Care Education/Training Program; ATTEND Family Medicine
DX: R07.9 Chest pain, unspecified (principal); I25.10 Atherosclerotic heart disease of native coronary artery without angina pectoris; I10 Essential (primary) hypertension; E87.1 Hypo-osmolality and hyponatremia; I08.1 Rheumatic disorders of both mitral and tricuspid valves; E11.9 Type 2 diabetes mellitus without complications; I25.2 Old myocardial infarction; K21.9 Gastro-esophageal reflux disease without esophagitis; Z79.82 Long term (current) use of aspirin; Z79.84 Long term (current) use of oral hypoglycemic drugs; Z79.899 Other long term (current) drug therapy; Z95.1 Presence of aortocoronary bypass graft; Z90.49 Acquired absence of other specified parts of digestive tract
CPT/HCPCS: 0240U; 70450; 71045; 78452; 80048 ×2; 80053; 80061; 82962 ×3; 83690; 83735; 83880; 84484 ×3; 85025 ×3; 93005; 93017; 93306; 93880; 96374; A9502; G0378 ×4; J2785; 36415; 36416; J3475